=== PATIENT | male | born 1935 | race Caucasian/White ===

== ENCOUNTER → 2019-01-08 | Outpatient (CLI) | payer OTHER | LOC: RAD 09:30 | DX: J98.4 Other disorders of lung (principal); R53.1 Weakness; M79.10 Myalgia, unspecified site; Z95.0 Presence of cardiac pacemaker ==

== ENCOUNTER → 2019-03-06 | Outpatient (CLI) | payer OTHER | LOC: MRI 09:32 | DX: I67.82 Cerebral ischemia (principal); G45.9 Transient cerebral ischemic attack, unspecified ==

== ENCOUNTER 2019-08-25 17:02 | Inpatient (IN) | payer OTHER ==
[~2019-08-25] VITALS: Ht 182.9 cm; Wt 82.5 kg
--- NOTE | ~2019-08-25 | EMS ---
[address] [address] EMS Patient Care Report Name: JOHNNY ZUÑIGA Room #: 216-P [facility] IN M.R.#: [id number] Admission: 08/25/19 Attend Phys: Rony Jasso MD Discharge: 08/31/19 Date of : 31 Report #: [id number] THIS REPORT FOR: //name// Report Transmitted: 08/25/2019 17:03 EMS Care Summary [facility] MED-ACT Incident [id number] @ 08/25/2019 16:24 Incident Location [address] [place] [address] Patient JOHNNY ZUÑIGA Male, 84 Years 1935 Patient Address [address] [place] [address] Patient History None Reported, Patient Allergies No known allergies, Patient Medications Amiodarone, Chief Complaint Pt is unable to walk, weaker than usual per Disposition Transported No Lights/Krebs Dispatch Reason Sick Person Transported To [facility] Narrative [id number] responded to a C3 sick person at the above residential address. On scene, the crew finds a A&Ox3 83/M pt seated in a recliner. Pt's on scene states that she helped pt up to go take a nap and "he was just weight". Pt's states that pt suffers from dementia, and this is his usual nap time. Pt [address] [address] EMS Patient Care Report Name: JOHNNY ZUÑIGA Room #: 216-P [facility] IN M.R.#: [id number] Admission: 08/25/19 Attend Phys: Rony Jasso MD Discharge: 08/31/19 Date of : 31 Report #: [id number] appears A&Ox3 to EMS and is able to complete stroke scale without difficulties. states that approx 2 months ago, pt had a UTI and finished his antibiotic regimen a long time ago without a follow-up. Pt is incontinent to urine once we help him up from his chair. Pt denies any chest pain or shortness of breath. Pt's gives pmhx as noted, doesn't know what he takes the amiodarone for. ABCs, PE, VS, pt assisted to stand and transfer to cot. Pt secured to cot with belts and moved to [facility]. On board, VS repeated as noted. Pt rests en route to [facility]. On arrival, pt moved via cot to 3 and updated report delivered to RN. Pt sheet lifted to ER bed. Initial Vitals @16:49P: 73,SpO2: 95, @16:39P: 72,R: 18,BP: 168/78,Pain: 0/10,GCS: 15,SpO2: 94,Revised Trauma: 12, @16:50P: 98,R: 18,BP: 152/77,Pain: 0/10,GCS: 15,Temp: 97.7F,SpO2: 97,Revised Trauma: 12, Assessments @16:38MENTAL:No Abnormalities,SKIN:HEENT:Head/Face: No Abnormalities,Neck/Airway: No Abnormalities,LUNG SOUNDS:General: No Abnormalities,ABDOMEN:General: No Abnormalities,PELVIS//GI:Incontinence,EXTREMITIES:Left Arm: No Abnormalities,Right Arm: No Abnormalities,Left Leg: No Abnormalities,Right Leg: No Abnormalities,PULSE:NEURO:No Abnormalities, Impression Generalized Weakness Timeline 16:24,Call Received 16:24,Psap Call 16:24,Dispatched 16:25,En Route 16:36,On Scene 16:37,At Patient 16:39,BP: 168/78 M,PULSE: 72,RR: 18 R,SPO2: 94 Ox,ETCO2: ,BG: ,PAIN: 0,GCS: 15, 16:49,Depart Scene 16:49,BP: / M,PULSE: 73,RR: R,SPO2: 95 Ox,ETCO2: ,BG: ,PAIN: ,GCS: , 16:50,BP: 152/77 M,PULSE: 98,RR: 18 R,SPO2: 97 Ox,ETCO2: ,BG: ,PAIN: 0,GCS: 15, 16:56,At Destination 17:14,Call Closed Disclaimer v1.1 Copyright 2020 [employer] This EMS Care Summary contains data elements from the applicable legal record [address] [address] EMS Patient Care Report Name: JOHNNY ZUÑIGA Room #: 216-P [facility] IN M.R.#: [id number] Admission: 08/25/19 Attend Phys: Rony Jasso MD Discharge: 08/31/19 Date of : 33 Report #: [id number] (which may be displayed differently). It is designed to provide pertinent information for the following purposes: continuity of care, clinical quality, and state data reporting. The complete legal record is available to ED staff and administrators of the receiving hospital in [facility]s Patient Tracker. All data is provided "as is."
[2019-08-25 17:03] VITALS: BP 156/80
[2019-08-25 17:40] LABS: ABSOLUTE NEUTROPHILS 4.5 thou/uL (1.4-8.2); BASOPHILS 0.9 % (0.0-2.0); EOSINOPHILS 2.8 % (0.0-3.0); HEMATOCRIT 45.6 % (42.0-52.0); HEMOGLOBIN 15.5 gm/dL (14.0-18.0); LYMPHOCYTES 23.6 % (24.0-44.0); MCH 33.2 pg (26.0-34.0); MCV 97.6 fL (80.0-100.0); MONOCYTES 9.2 % (1.0-8.0); PLATELET COUNT 237 thou/uL (150-400); POLYS 63.5 % (36.0-66.0); RBC 4.67 mil/uL (4.50-6.00); RDW 15.4 % (10.5-14.5); WBC 7.1 thou/uL (4.0-11.0)
[2019-08-25 17:43] LABS: ANION GAP 10 mmol/L (7-16); BUN 26 mg/dL (7-18); CALCIUM 9.1 mg/dL (8.5-10.1); CHLORIDE 104 mmol/L (98-107); CO2 27 mmol/L (21-32); CREATININE 1.4 mg/dL (0.7-1.3); GLUCOSE 103 mg/dL (74-106); POTASSIUM 4.1 mmol/L (3.5-5.1); SODIUM 141 mmol/L (136-145)
[2019-08-25] MEDS ORDERED: CENTRUM SILVER1 EAC7 PO (17:43)
[2019-08-25] MEDS ORDERED: OMEGA-3 FISH1200 MG PO (17:44)
[2019-08-25 17:45] LABS: URINE BILIRUBIN NEGATIVE (Negative); URINE BLOOD TRACE (Negative); URINE CLARITY CLEAR; URINE COLOR YELLOW; URINE GLUCOSE-RANDOM* NEGATIVE (Negative); URINE KETONES NEGATIVE (Negative); URINE LEUKOCYTES-REFLEX NEGATIVE (Negative); URINE NITRITE-REFLEX NEGATIVE (Negative); URINE PROTEIN (DIPSTICK) NEGATIVE (Negative); URINE UROBILINOGEN 0.2 E.U./dl (0.2-1.0)
[2019-08-25] MEDS ORDERED: AMIODARONE HCL400 MG PO (17:46)
[2019-08-25 17:53] LABS: ALBUMIN 4.1 g/dL (3.4-5.0); SGOT 7 U/L (15-37); SGPT 36 U/L (30-65); TOTAL BILIRUBIN 0.6 mg/dL (<0.1-1.0); TOTAL PROTEIN 7.6 g/dL (6.4-8.2); TROPONIN-I <0.06 ng/mL (<0.06)
[2019-08-25 20:27] VITALS: BP 146/67
[2019-08-26 04:30] LABS: HEMATOCRIT 42.6 % (42.0-52.0); HEMOGLOBIN 14.5 gm/dL (14.0-18.0); MCH 33.1 pg (26.0-34.0); MCV 97.4 fL (80.0-100.0); RBC 4.37 mil/uL (4.50-6.00); RDW 15.4 % (10.5-14.5); WBC 8.7 thou/uL (4.0-11.0)
[2019-08-26 04:46] LABS: ALBUMIN 3.6 g/dL (3.4-5.0); CALCIUM 9.1 mg/dL (8.5-10.1); CREATININE 1.3 mg/dL (0.7-1.3); POTASSIUM 3.4 mmol/L (3.5-5.1); TOTAL BILIRUBIN 0.6 mg/dL (<0.1-1.0); TOTAL PROTEIN 7.1 g/dL (6.4-8.2)
[2019-08-26 05:00] VITALS: BP 130/31
[2019-08-26 08:00] VITALS: BP 153/79
[2019-08-26 11:00] VITALS: BP 136/62
--- NOTE | 2019-08-26 12:22 | 2DMMODE ---
[facility] [address] [place] [address] 2 D/M-MODE ECHOCARDIOGRAM Name: YOGESHJOHNNY Room #: 216-P ADM IN M.R.#: [id number] Admission: 08/25/19 Attend Phys: Rony Jasso MD Discharge: Date of : 33 Report #: [id number] THIS REPORT FOR: cc: Rony Jasso MD, Neal A. MD Lammoglia, Francisco J. MD ~ THIS REPORT FOR: //name// APPROVED REPORT Study performed: 08/26/2019 08:52:34 EXAM: Comprehensive 2D, Doppler, and color-flow Echocardiogram Patient Location: Bedside Room #: 216 Status: routine BSA: 2.01 HR: 62 bpm BP: 153/78 mmHg Rhythm: NSR Other Information Study Quality: Adequate Indications CVA/TIA Pacemaker Weakness Dementia Echo Enhancing Agent Indication: Rule Out Septal Defect Agent(s) / Amount(s) Used: Agitated Saline 7 cc 2D Dimensions IVSd: 10.66 (7-11mm) LVOT Diam: 21.00 (18-24mm) LVDd: 55.42 mm PWd: 9.18 (7-11mm) Ascending Ao: 36.12 (22-36mm) LVDs: 37.77 (25-40mm) Aortic Root: 32.87 mm LV Single Plane 4CH: 48.55 % LV Single Plane 2CH: 43.69 % Volumes [facility] [address] [place] [address] 2 D/M-MODE ECHOCARDIOGRAM Name: JOHNNY ZUÑIGA Room #: 216-P [facility] IN M.R.#: [id number] Admission: 08/25/19 Attend Phys: Rony Jasso, Discharge: Date of : 33 Report #: [id number] Left Atrial Volume (Systole) Single Plane 4CH: 92.72 mL Single Plane 2CH: 59.38 mL LA ESV Index: 46.00 mL/m2 Aortic Valve AoV Peak Da.: 1.14 m/s AO Peak Gr.: 5.23 mmHg LVOT Max P.28 mmHg LVOT Max V: 0.91 m/s KRISTEN Vmax: 2.74 cm2 Mitral Valve E/A Ratio: 0.6 MV Decel. Time: 275.68 ms MV E Max Da.: 0.49 m/s MV A Da.: 0.88 m/s MV PHT: 79.95 ms IVRT: 83.04 ms TDI E/Lateral E': 8.17 E/Medial E': 12.25 Medial E' Da.: 0.04 m/s Lateral E' Da.: 0.06 m/s Pulmonary Valve PV Peak Da.: 0.78 m/s PV Peak Gr.: 2.42 mmHg Tricuspid Valve TR Peak Da.: 2.41 m/s TR Peak Gr.: 23.30 mmHg Left Ventricle The left ventricle is normal size. Distal septal and anteroapical hypokinesis. There is normal left ventricular wall thickness. Left ventricular systolic function is normal. The left ventricular ejection fraction is within the normal range. LVEF is 45%. Mild diastolic dysfunction is present (impaired relaxation pattern). Right Ventricle The right ventricle is normal size. The right ventricular systolic function is normal. Pacemaker lead is present in the right ventricle. Atria Left atrium is moderately dilated. Injection of bubbles documented no interatrial shunt. Right atrium is mildly dilated. [facility] [address] [place] [address] 2 D/M-MODE ECHOCARDIOGRAM Name: JOHNNY ZUÑIGA Paco Room #: 216-P [facility] IN M.R.#: [id number] Admission: 08/25/19 Attend Phys: Rony Jasso, Discharge: Date of : 33 Report #: [id number] Aortic Valve The aortic valve is normal in structure. No aortic regurgitation is present. There is no aortic valvular stenosis. Mitral Valve The mitral valve is normal in structure. Moderate mitral regurgitation with an eccentric jet No evidence of mitral valve stenosis. Tricuspid Valve The tricuspid valve is normal in structure. Mild tricuspid regurgitation. Tricuspid regurgitant jet measures 23 mmHg. Unable to assess PA pressure. Pulmonic Valve The pulmonary valve is normal in structure. There is no pulmonic valvular regurgitation. Great Vessels The aortic root is normal in size. The ascending aorta is normal in size. IVC is not well visualized. Pericardium There is no pericardial effusion. <Conclusion> The left ventricle is normal size. LVEF is 45%. LVEF is 45%. Distal septal and anteroapical hypokinesis. The right ventricle is normal size. The right ventricular systolic function is normal. Pacemaker lead is present in the right ventricle. Left atrium is moderately dilated. Right atrium is mildly dilated. The aortic valve is normal in structure. The mitral valve is normal in structure. Moderate mitral regurgitation with an eccentric jet The tricuspid valve is normal in structure. Mild tricuspid regurgitation. Tricuspid regurgitant jet measures 23 mmHg. Unable to assess PA pressure. The pulmonary valve is normal in structure. [facility] [address] [place] [id number] 2 D/M-MODE ECHOCARDIOGRAM Name: JOHNNY ZUÑIGA Paco Room #: 216-P [facility] IN ..#: [id number] Admission: 08/25/19 Attend Phys: Rony Jasso, Discharge: Date of : 33 Report #: [id number] There is no pericardial effusion. Injection of bubbles documented no interatrial shunt. <ELECTRONICALLY SIGNED> By: Jorge Shah MD 08/26/19 1221 1221 1221 Jorge Shah MD /INF
[2019-08-26 16:30] VITALS: BP 137/59
[2019-08-26 19:37] VITALS: BP 146/77
[2019-08-27 05:03] VITALS: BP 123/57
[2019-08-27 08:00] VITALS: BP 139/61
[2019-08-27 12:00] VITALS: BP 133/54
[2019-08-27 16:00] VITALS: BP 141/68
[2019-08-27 20:14] VITALS: BP 146/61
[2019-08-28 04:05] VITALS: BP 145/72
[2019-08-28 08:00] VITALS: BP 144/76
[2019-08-28 12:00] VITALS: BP 143/68
[2019-08-28 19:52] VITALS: BP 128/73
[2019-08-29 03:30] VITALS: BP 123/56
[2019-08-29 08:42] VITALS: BP 109/61
[2019-08-29 12:06] VITALS: BP 122/72
[2019-08-29 15:45] VITALS: BP 144/85
[2019-08-29 20:48] VITALS: BP 152/80
[2019-08-30 05:37] VITALS: BP 125/58
[2019-08-30 05:44] LABS: HEMATOCRIT 43.3 % (42.0-52.0); HEMOGLOBIN 14.4 gm/dL (14.0-18.0); MCH 32.5 pg (26.0-34.0); MCHC 33.2 g/dL (28.0-37.0); MCV 97.9 fL (80.0-100.0); PLATELET COUNT 206 thou/uL (150-400); RBC 4.42 mil/uL (4.50-6.00); RDW 15.5 % (10.5-14.5); WBC 8.2 thou/uL (4.0-11.0)
[2019-08-30 06:28] LABS: ALBUMIN 3.3 g/dL (3.4-5.0); ANION GAP 10 mmol/L (7-16); BUN 24 mg/dL (7-18); CALCIUM 8.7 mg/dL (8.5-10.1); CHLORIDE 108 mmol/L (98-107); CHOLESTEROL 141 mg/dL (<200); CO2 22 mmol/L (21-32); CREATININE 1.1 mg/dL (0.7-1.3); GLUCOSE 104 mg/dL (74-106); MAGNESIUM 1.9 mg/dL (1.8-2.4); SODIUM 140 mmol/L (136-145); TRIGLYCERIDE 73 mg/dL (<150); VLDL 15 mg/dL (<40)
[2019-08-30 06:35] LABS: ABSOLUTE NEUTROPHILS 5.7 thou/uL (1.4-8.2); PLATELET ESTIMATE NORMAL
[2019-08-30 07:11] LABS: TSH 1.362 uIU/mL (0.358-3.740)
[2019-08-30 07:12] LABS: HDL CHOLESTEROL 42 mg/dL (>40); LDL CHOLESTEROL 85 mg/dL (<100); PHOSPHORUS 3.7 mg/dL (2.5-4.9); SGOT 23 U/L (15-37); SGPT 22 U/L (30-65); TC:HDL 3.4 Ratio (Not establshd); TOTAL BILIRUBIN 0.8 mg/dL (<0.1-1.0)
[2019-08-30 08:47] VITALS: BP 114/62
[2019-08-30 12:31] VITALS: BP 114/64
[2019-08-30 17:16] VITALS: BP 111/62
[2019-08-30 19:58] VITALS: BP 120/53
[2019-08-31 04:22] VITALS: BP 107/60
[2019-08-31 08:00] VITALS: BP 123/70
[2019-08-31] MEDS ORDERED: LIPITOR40 MG PO (08:52)
[2019-08-31] MEDS ORDERED: ASPIRIN325 PO (08:52)
[2019-08-31] MEDS ORDERED: PEPCID20 MG PO (08:53)
[2019-08-31 12:19] VITALS: BP 135/72
--- NOTE | 2019-09-25 15:20 | EKG ---
[facility] [place] [address] ELECTROCARDIOGRAM REPORT Name: JOHNNY ZUÑIGA Room #: 216-[facility] IN M.R.#: [id number] Admission: 08/25/19 Attend Phys: Rony Jasso MD Discharge: 08/31/19 Date of : 31 Report #: [id number] THIS REPORT FOR: cc: Rony Jasso MD, Neal A. MD Couchonnal, Luis F. MD ~ THIS REPORT FOR: //name// [facility] ED Test Date: 2019-08-25 Test Time: 17:44:21 Pat Name: JOHNNY ZUÑIGA Department: Room: 216 Gender: M Experience Designer: ana paula : 1935 Requested By: Wilmer East Order Number: [id number] MD: Sami oPmpa Measurements Intervals [place] Rate: 60 P: 0 PA: 156 QRS: -75 QRSD: 178 T: 84 QT: 511 QTc: 511 Interpretive Statements A-V dual-paced rhythm with some inhibition No further analysis attempted due to paced rhythm No previous ECG available for comparison Electronically Signed On 08-26-2019 8:41:25 HELMINTHOLOGY TEACHER by Sami Pompa [email or web address] <ELECTRONICALLY SIGNED> By: Sami Pompa MD 08/26/19 0841 [id number] Sami Pompa MD /EPI
== END 2019-08-31 15:29 | DRG 64 ==
LOC: ER 17:02 → EROBS 19:09 → 2N 19:09 → ENTRNSPT 08-31 15:13 → 2N 08-31 15:29
PROVIDERS: Internal Medicine; Nurse Practitioner; ADMIT Family Medicine
DX: I63.9 Cerebral infarction, unspecified (principal); N17.0 Acute kidney failure with tubular necrosis; I48.20 Chronic atrial fibrillation, unspecified; I69.354 Hemiplegia and hemiparesis following cerebral infarction affecting left non-dominant side; Z66 Do not resuscitate; F01.50 Vascular dementia, unspecified severity, without behavioral disturbance, psychotic disturbance, mood disturbance, and anxiety; E78.5 Hyperlipidemia, unspecified; I34.0 Nonrheumatic mitral (valve) insufficiency; I12.9 Hypertensive chronic kidney disease with stage 1 through stage 4 chronic kidney disease, or unspecified chronic kidney disease; N18.3 Chronic kidney disease, stage 3 (moderate); Z87.440 Personal history of urinary (tract) infections; Z79.899 Other long term (current) drug therapy; Z79.01 Long term (current) use of anticoagulants
CPT/HCPCS: 10081

== ENCOUNTER 2019-08-31 14:15 | Inpatient (IN) | payer OTHER ==
[~2019-08-31] VITALS: Ht 190.5 cm; Wt 82.6 kg
[~2019-08-31 14:15] MED LIST: AMIODARONE HCL400 MG PO; ASPIRIN325 PO; CENTRUM SILVER1 EAC7 PO; LIPITOR40 MG PO; OMEGA-3 FISH1200 MG PO; PEPCID20 MG PO
[2019-08-31 16:03] VITALS: BP 125/55
--- NOTE | 2019-08-31 19:28 | NUR ---
ASSUME PT CARE AT 1600 FROM CCU. 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 RECEIVED REPORT FROM CCU RN THAT PT IS INCONT B&B. ON ASPIRATION PRECAUTION, NECTAR THICKEN LIQUID, AND MECHANICAL ALTERED GROUND. ALERT AND ORIENTED X2, FORGETFUL. HAS DEMENTIA, SPEECH DEVIATION TOWARD THE RIGHT SIDE. UP WITH MAX ASSIST WITH 2X PIVOT. UP TO DINNING ROOM FOR DINNER. ATE 40% DINNER. DENIES PAIN. SKIN INTACT. NO ABLE TO TURN BY HIMSELF. NEEDS TO BE TURN Q2HR WHILE IN BED. ADMISSION MEDS FAXED TO PHARMACY. DR. MONTILLA NOTICED THAT PT MOVE TO REHAB. 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 PT RESTING IN BED. FALL PRECAUTION IN PLACE. CALL LIGHT WITHIN REACH. GAVE REPORT TO NIGHT NURSE TO CONTINUE TO MONITOR.
[2019-08-31 21:39] VITALS: BP 132/64
--- NOTE | 2019-08-31 23:21 | NUR ---
PT ASSESSMENT DONE AND VSS. MEDS GIVEN AND WELL TOLERATED. FALL PRECAUTIONS IN PLACE. SLEPT WELL. HOURLY ROUNDING. CALL LIGHT IN PLACE. WILL CONTINUE TO MONITOR.
[2019-09-01 06:47] LABS: HEMATOCRIT 40.7 % (42.0-52.0); HEMOGLOBIN 13.6 gm/dL (14.0-18.0); MCH 32.8 pg (26.0-34.0); MCHC 33.3 g/dL (28.0-37.0); MCV 98.3 fL (80.0-100.0); RBC 4.14 mil/uL (4.50-6.00); WBC 7.4 thou/uL (4.0-11.0)
[2019-09-01 06:59] LABS: CALCIUM 8.7 mg/dL (8.5-10.1); CREATININE 1.1 mg/dL (0.7-1.3); POTASSIUM 3.8 mmol/L (3.5-5.1)
[2019-09-01 08:00] VITALS: BP 105/66
--- NOTE | 2019-09-01 09:50 | NUR ---
pt up in wheel chair, intro to dcp, and team meeting. had vs swallow. st to start vital stim. " home with , independent, no dme"/iglesia. will cont following as needed for dc needs.
--- NOTE | 2019-09-01 18:06 | NUR ---
ASSUME PT CARE AT 0700. REPORTS SLEPT GOOD LAST NIGHT. ALERT AND ORIENTED X2. FORGETFUL. HAS DEMENTIA. PT IS INCONT B&B. OFFERED TOILETING FREQUENTLY. PT HAS BEEN UP TO DINNING ROOM FOR MEALS. ON ASPIRATION PRECAUTION, NECTAR THICKEN LIQUID, AND MECHANICAL ALTERED GROUND. UP WITH MAX ASSIST PIVOT. HAS POOR APPETITE, ABLE TO FEED HIMSELF BUT NEEDS ENCOURAGEMENT. ATE 25% BREAKFAST AND DINNER, BUT 5% FOR LUNCH. DENIES PAIN. SKIN INTACT. NO ABLE TO TURN BY HIMSELF WHILE IN BED, NEEDS TO BE TURN Q2HR WHILE IN BED. OFFERED SUPPORTIVE CARE. PT WAS UP TO WORK WITH OT/PT AND ST. PARTICIPATED WELL WITH THERAPY TODAY. ABLE TO TAKE PILL ONE WITH APPLE SAUCES, SLOW WITH EXTRA SWALLOWING IN BETWEEN. FALL PRECAUTION IN PLACE. CALL LIGHT WITHIN REACH. WILL GIVE REPORT TO NIGHT NURSE TO CONTINUE TO MONITOR.
[2019-09-01 19:17] VITALS: BP 92/50
--- NOTE | 2019-09-02 03:16 | NUR ---
TURNED Q 2 HOURS AND HAS BEEN INCONTINENT OF URINE 3 TIMES. PLEASANT, TOLERATING PILLS ONE AT A TIME WITH APPLESAUCE, PLUS NECTAR THICK LIQUIDS A SPOONFUL AT A TIME.
[2019-09-02 07:50] VITALS: BP 108/48
--- NOTE | 2019-09-02 12:59 | NUR ---
cm visited with at bedside, she agrees with dcp. jeremy reported " in split level home, 5 steps then 4 steps from living room to bathroom. he has not driven in while. i could set out his clothes and then he could dress himself if i would say ok i have to finish my stuff then when go to help he would be dressed already . i guess could put twin bed in main level if we had to then only have 4 steps to bathroom. no hh or rehab in past. no equipment needed in past, would like to know if he is walking yet or is it to early?"/jeremy. passed on information to therapy to speak with .
--- NOTE | 2019-09-02 13:50 | NUR ---
PT ALERT TO SELF ONLY. VSS. PT DENEIS PAIN/SOA. PT TOLERATES MEDS, BUT ONLY EATS A SMALL PORTIONS OF MEALS. PT WORKED WELL WITH PT/OT TODAY. PT AT BEDISIDE THIS AFTERNOON. PT SLOWLY PROGRESSING [facility] POC GOALS.
[2019-09-02 19:08] VITALS: BP 130/62
--- NOTE | 2019-09-02 23:58 | NUR ---
ASSUMED CARE ON 09/02/19, IN BED, VSS, A&OX1-2. FORGETFUL AND LEFT SIDED HEMIPARESIS NOTED. PLEASANT, QUIET AFFECT, WILL SPEAK AND ANSWER QUESTIONS DURING ASSESSMENT. DENIES PAIN. REPORTS LAST BM ON 09/02, LARGE AND FIRM. INCONTINENT OF B&B. HRRR, LUNGS CTA ALL PEREZ, ABD N X 4 Q. TAKES MEDS ONE AT A TIME WITH APPLESAUCE AND NECTAR THICK BEVERAGE. ASPIRATION PRECAUTION, MECHANICAL ALTERED GROUND DIET. PATIENT IS BEING TURNED Q 2 HOURS, CALL LIGHT WITHIN REACH, BED IN LOW POSITION, ROUNDING Q 1 HOUR.
[2019-09-03 08:00] VITALS: BP 128/67
[2019-09-03 21:16] VITALS: BP 137/70
--- NOTE | 2019-09-03 23:00 | NUR ---
PT ASSESSMENT DONE AND VSS. MEDS GIVEN AND WELL TOLERATED. FALL PRECAUTIONS IN PLACE. SLEEPING WELL. HOURLY ROUNDING. CALL LIGHT IN REACH. WILL CONTINUE TO MONITOR.
[2019-09-04 07:48] VITALS: BP 121/62
[2019-09-04 19:30] VITALS: BP 105/61
--- NOTE | 2019-09-05 02:34 | NUR ---
PATIENT TURNING SELF EVERY TWO HOURS, HAS BEEN INCONTINENT TWICE OF URINE AND SMALL OMOUNT SOFT STOOL, HAD ONLY TAKEN 25% OF HIS MIRALAX BECAUSE HE DID NOT LIKE THE TASTE. TOLERATING PILLS WHOLE WITH APPLESAUCE AND SIPS OF NECTAR THICK LIQUIDS.
[2019-09-05 08:49] VITALS: BP 138/71
[2019-09-05 08:50] VITALS: BP 118/66
[2019-09-05 08:51] VITALS: BP 138/71
[2019-09-05 08:52] VITALS: BP 118/66
--- NOTE | 2019-09-05 09:38 | NUR ---
ASSUMED CARE AT 0700. PATIENT IS ALERT AND ORIENTED X1 TO SELF AND IS FORGETFUL. PATIENT HAS LEFT SIDED WEAKNESS. LUNGS ARE CLEAR AND DEMINISHED. ABD IS SOFT WITH BSX4. PATIENT IS INCONTINENT OF B & B. UP IN W/C AND OUT TO DINING ROOM FOR MEALS. FALL AND SAFETY PROTOCOLS IN PLACE. DENIES ANY PAIN AT THIS TIME. CONTINUES TO PROGRESS SLOWLY TOWARDS D/C GOALS. WILL CONTINUE TO MONITER.
[2019-09-05 20:13] VITALS: BP 113/55
--- NOTE | 2019-09-06 03:02 | NUR ---
TURNED SIDE TO SIDE WITH AND WITHOUT ASSIST. INCONTINENT OF BOWEL AND BLADDER. TOLERATING MEDS WHOLE WITH APPLESAUCE, TAKING SPOONFULS OF NECTAR THICK LIQUIDS
[2019-09-06 08:00] VITALS: BP 113/58
--- NOTE | 2019-09-06 16:37 | NUR ---
ASSUMED CARE OF PT AT 0700. PT IS ALERT AND ORIENTED TO PERSON ONLY. PT DENIES PAIN. UP IN DINING ROOM FOR ALL MEALS. LEFT SIDED HEMIPARESTIS AND SLURRED SPEECH, NO CHANGES FROM BASELINE. INCONTINENT OF BOWEL AND BLADDER. INCOURAGED BY STAFF TO INCREASE NUTRITIONAL INTAKE. FALL PRECAUTIONS IN PLACE AND NURSING WILL CONTINUE TO MONITOR.
[2019-09-06 19:55] VITALS: BP 125/56
--- NOTE | 2019-09-07 00:39 | NUR ---
PT ASSESSMENT DONE AND VSS. MEDS GIVEN AND WELL TOLERATED. FALL PRECAUTIONS IN PLACE. SLEEPING WELL. HOURLY ROUNDING. CALL LIGHT IN REACH. WILL CONTINUE TO MONITOR.
[2019-09-07 08:08] VITALS: BP 115/52
--- NOTE | 2019-09-07 18:54 | NUR ---
ASSUMED CARE OF PT AT 0700. PT IS A&OX4 AND VITAL SIGNS ARE STABLE. PT DENIES PAIN AND PARTICIPATED IN SCHEUDLED THERAPIES. PT INCONTINENT OF BOWEL AND BLADDER, PT UNAWARE OF INCONTINENT EPISODES AND REQUIRES Q2H CHECKS BY NURSING STAFF. TURNED AND REPOSITIONED EVERY 2 HOURS. LUNG SOUNDS CLEAR/DIMINISHED. FALL PRECAUTIONS IN PLACE AND NURSING WILL CONTINUE TO MONITOR.
[2019-09-07 19:18] VITALS: BP 131/59
--- NOTE | 2019-09-08 02:04 | NUR ---
PT ASSESSMENT COMPLETED AND VSS. MEDS GIVEN ORDERED AND WELL TOLERATED. FALL PRECAUTIONS IN PLACE. ASST WITH FREQUENT REPOSITION FOR COMFORT. INC AND LEWIS CARE PROVIDED. SLEEPING WELL. DENIES NEEDS. APPEARS COMFORTALBE. WILL CONTINUE TO MONITOR FREQUENTLY.
[2019-09-08 05:42] LABS: ABSOLUTE NEUTROPHILS 5.8 thou/uL (1.4-8.2); BASOPHILS 0.5 % (0.0-2.0); EOSINOPHILS 2.9 % (0.0-3.0); HEMATOCRIT 39.2 % (42.0-52.0); HEMOGLOBIN 13.1 gm/dL (14.0-18.0); LYMPHOCYTES 18.7 % (24.0-44.0); MCH 32.5 pg (26.0-34.0); MCHC 33.5 g/dL (28.0-37.0); MCV 97.2 fL (80.0-100.0); PLATELET COUNT 218 thou/uL (150-400); POLYS 67.9 % (36.0-66.0); RBC 4.03 mil/uL (4.50-6.00); RDW 14.8 % (10.5-14.5); WBC 8.6 thou/uL (4.0-11.0)
[2019-09-08 05:53] LABS: CALCIUM 8.9 mg/dL (8.5-10.1); CREATININE 1.4 mg/dL (0.7-1.3); POTASSIUM 3.7 mmol/L (3.5-5.1)
[2019-09-08 07:50] VITALS: BP 121/67
--- NOTE | 2019-09-08 14:15 | NUR ---
team meeting, recommendation: diet mech. soft with nectar, can have 5 cc with provial cup in room. incont of b and b. to work with therapy training. re team with dc 09/25/2019 home with hh pt ot st nursing. will cont following as needed for dc needs.
--- NOTE | 2019-09-08 19:32 | NUR ---
ASSUMED CARE OF PT AT 0700. PT IS A&OX1-2. INCONTENENT OF BOWEL AND BLADDER, PT UNAWARE OF INCONTENENT EPISODES. NO NOTED SKIN BREAKDOWN. PT DENIES PAIN. FALL PRECAUTIONS IN PLACE, NURSING WILL CONTINUE TO MONITOR.
[2019-09-08 19:35] VITALS: BP 110/45
--- NOTE | 2019-09-09 | NUR ---
PT ASSESSMENT COMPLETED AND VSS. MEDS GIVEN ORDERED AND WELL TOLERATED. FALL PRECAUTIONS IN PLACE. ASST WITH FREQUENT REPOSITION FOR COMFORT. INC OF URINE. SLEEPING WELL. DENIES NEEDS. WILL CONTINUE TO MONITOR FREQUENTLY.
[2019-09-09 07:50] VITALS: BP 113/62
--- NOTE | 2019-09-09 14:39 | NUR ---
pt stated ok when discussing dcp, unable to reach via phone call. will cont following as needed for dc needs.
--- NOTE | 2019-09-09 15:46 | NUR ---
Patient participated in community reintegration on 09/09/[address] Refer to documentation by .
--- NOTE | 2019-09-09 16:24 | NUR ---
ASSUMED CARE OF PT AT 0700. PT IS A&OX1-2. ABLE TO VOICE HIS NEEDS ENCOURAGED TO. [place]. CONTINUE TO BE O SWALLOWING PRECAUTION. ON MECHANICAL SOFT. MEDS TAKE ONE AT THE TIME WITH APPLE SAUCE. INCONTENENT OF BOWEL AND BLADDER. REASSESSMENT PER CHART. LAST BM WAS YESTERDAY. CONTINUE TO BE ON MIRALAX DAILY. PT UNAWARE OF INCONTENENT EPISODES. NO NOTED SKIN BREAKDOWN. TURN Q 2HRS WHILE IN BED. B/P LOW 113/62. DR. PINO STARTS PT ON NS 0.9% AT 30ML/HR. IV STARTED ON LEFT FOREARM. PT DENIES PAIN. UP TO DINNING ROOM FOR MEALS. WAS HERE EARLIER. PT WENT DOWN TO [place] TODAY. FALL PRECAUTIONS IN PLACE. OFFER TOILETING FREQUENTLY. RESTING IN BED. NURSING WILL CONTINUE TO MONITOR.
[2019-09-09 20:00] VITALS: BP 115/63
--- NOTE | 2019-09-10 04:23 | NUR ---
INCONTINENT OF URINE, CHANGED WITH [facility]WIS CARE, PATIENT IS TURNING SELF SIDE TO SIDE BUT MOSTLY TO THE LEFT. IV FLUIDS INFUSING PLUS TAKING NECTAR THICK LIQUIDS PO.
[2019-09-10 06:04] LABS: ABSOLUTE NEUTROPHILS 7.5 thou/uL (1.4-8.2); BASOPHILS 0.7 % (0.0-2.0); EOSINOPHILS 2.7 % (0.0-3.0); HEMATOCRIT 36.8 % (42.0-52.0); HEMOGLOBIN 12.8 gm/dL (14.0-18.0); LYMPHOCYTES 14.7 % (24.0-44.0); MCH 34.2 pg (26.0-34.0); MCHC 34.9 g/dL (28.0-37.0); MCV 98.2 fL (80.0-100.0); MONOCYTES 10.7 % (1.0-8.0); PLATELET COUNT 214 thou/uL (150-400); POLYS 71.2 % (36.0-66.0); RBC 3.74 mil/uL (4.50-6.00); RDW 14.8 % (10.5-14.5); WBC 10.5 thou/uL (4.0-11.0)
[2019-09-10 06:42] LABS: CALCIUM 8.4 mg/dL (8.5-10.1); CREATININE 1.3 mg/dL (0.7-1.3); PHOSPHORUS 3.5 mg/dL (2.5-4.9); POTASSIUM 4.1 mmol/L (3.5-5.1)
[2019-09-10 08:00] VITALS: BP 128/76
[2019-09-10 12:57] VITALS: BP 120/63
--- NOTE | 2019-09-10 15:11 | NUR ---
Patient participated in community reintegration on 09/09/19 with SPEECH THERAPY. Refer to documentation by SPEECH THERAPY.
[2019-09-10 20:00] VITALS: BP 120/63
--- NOTE | 2019-09-10 20:40 | NUR ---
PATIENT SLEEPY TODAY AND SPOUSE CONCERNED ABOUT PATIENT SLEEPINESS. PRIMARY MD AND REHAB CABIN CREW AWARE. ENCOURAGE PATIENT TO TAKE MORE NECTAR THICK LIQUIDS.
--- NOTE | 2019-09-11 04:31 | NUR ---
ASSUMED PT CARE AROUND 1930. AXOX2. VSS. NO S/S ACUTE DISTRESS NOTED OR REPORTED AT THIS TIME. WILL CONT TO MONITOR FOR ANY CHANGES IN CONDITION.
[2019-09-11 07:51] VITALS: BP 103/57
--- NOTE | 2019-09-11 18:43 | NUR ---
ASSUMED CARE OF PT AT 0700. REPORTS SLEPT GOOD LAST NIGHT. PT IS A&OX1-2. ABLE TO VOICE HIS NEEDS ENCOURAGED TO. [place]. CONTINUE TO BE ON SWALLOWING PRECAUTION. ON MECHANICAL SOFT. MEDS TAKE ONE AT THE TIME WITH APPLE SAUCE. INCONTENENT OF BOWEL AND BLADDER. REASSESSMENT PER CHART. HAD INCONT BM THIS EVENING. CONTINUE TO BE ON MIRALAX DAILY. PT UNAWARE OF INCONTENENT EPISODES. NO NOTED SKIN BREAKDOWN. TURN Q 2HRS WHILE IN BED. REASSESSMENT PER CHART. CHEST XRAY YESTERDAY SHOWS MILD RIGHT AIR SPACE INFILTRATION. HAS RUNNING NOSE. NOTIFIED DR. PINO OBTAINED ORDER FOR FLONASE SPRAY BID. OBTAINED ORDER FOR PSYCH CONSULT. DR. PATINO CAME TO SEE PT, BUT COULDN'T WAKE HIM UP. DOCTOR SHE WILL SEE PT ON SATURDAY. UP TO DINNING ROOM FOR MEALS. WAS HERE EARLIER. FALL PRECAUTIONS IN PLACE. OFFER TOILETING FREQUENTLY. RESTING IN BED. WILL GIVE REPORT TO NIGHT NURSE TO CONTINUE TO MONITOR.
[2019-09-11 19:56] VITALS: BP 118/56
--- NOTE | 2019-09-12 04:41 | NUR ---
DENIES PAIN. INCONTINENT OF URINE, PERICARE AND TURNED Q2H, TURNS SELF TO LEFT SIDE EVEN AGAINST PILLOW. FEET ON PILLOW, AIR PUMP FOR THERAPY.
[2019-09-12 06:53] LABS: ABSOLUTE NEUTROPHILS 5.7 thou/uL (1.4-8.2); BASOPHILS 0.7 % (0.0-2.0); EOSINOPHILS 2.5 % (0.0-3.0); HEMATOCRIT 38.4 % (42.0-52.0); HEMOGLOBIN 12.9 gm/dL (14.0-18.0); LYMPHOCYTES 15.1 % (24.0-44.0); MCH 32.9 pg (26.0-34.0); MCHC 33.6 g/dL (28.0-37.0); MCV 97.7 fL (80.0-100.0); PLATELET COUNT 205 thou/uL (150-400); POLYS 69.7 % (36.0-66.0); RBC 3.93 mil/uL (4.50-6.00); RDW 14.6 % (10.5-14.5); WBC 8.2 thou/uL (4.0-11.0)
[2019-09-12 07:03] LABS: CALCIUM 8.6 mg/dL (8.5-10.1); CREATININE 1.3 mg/dL (0.7-1.3); PHOSPHORUS 3.2 mg/dL (2.5-4.9); POTASSIUM 3.8 mmol/L (3.5-5.1)
[2019-09-12 08:11] VITALS: BP 124/63
--- NOTE | 2019-09-12 10:34 | NUR ---
ASSUMED CARE OF PT AT 0700. OT WORKED WITH PT AND GOT PT UP TO DINNING ROOM. PT MORE ALERT THIS AM AND ABLE TO FEED HIMSELF LITTLE BETTER. ATE 50% BREAKFAST. INCONT BLADDER BEFORE GETS OUT THE BED. PT REPORTS SLEPT GOOD LAST NIGHT. PT IS A&OX1-2. ABLE TO VOICE HIS NEEDS ENCOURAGED TO. [place]. CONTINUE TO BE ON SWALLOWING PRECAUTION. ON MECHANICAL SOFT. MEDS TAKE ONE AT THE TIME WITH APPLE SAUCE. CONTINUE TO BE ON MIRALAX DAILY. ASSISTED TO BSC WITH MOD ASSIST. PT DOES BETTER TO HOLD ON BED RAIL AND STAND UP. HAD SMALL SOFT BM IN BSC. AT BEDSIDE HELPING TO TRIM PT'S BEAR. SHE IS HAPPY TO SEE PT IS MORE RESPONSIVE TODAY. FLONASE SPRAY GIVEN. PT LOOKS LESS CONGESTED TODAY. DR. PINO CAME TO SEE PT AND TALKED WITH HIS . REMERON 15MG ADD FOR ANTIDEPRESSION. PT WANTS TO LAY IN BED. PT GOALS FOR PT IS TO SIT IN RECLINER, GO TO DINNING ROOM FOR MEALS. WORK WITH PHYSICAL THERAPIST AT 2PM AND LAY DOWN. PT AGREES WITH THE GOALS. FALL PRECAUTIONS IN PLACE. OFFER TOILETING FREQUENTLY. WILL CONTINUE CHECK FREQUENTLY FOR NEEDS AND SAFETY.
[2019-09-12 19:30] VITALS: BP 133/72
--- NOTE | 2019-09-13 04:19 | NUR ---
RESTING QUIETLY, TURNING SELF MOST OFTEN TO HIS LEFT SIDE, INCONTINENT OF URINE TWICE. TAKING PO MEDS ONE AT A TIME WHOLE IN APPLESAUCE.
[2019-09-13 09:22] VITALS: BP 136/58
--- NOTE | 2019-09-13 16:26 | HC ---
[facility] [place] [address] CONSULTATION Name: JOHNNY ZUÑIGA Room #: 506-1 ADM IN M.R.#: [id number] Admission: 08/31/19 Attend Phys: Diego Sal MD Discharge: Date of : 33 Report #: [id number] THIS REPORT FOR: cc: Rony Jasso MD, Neal A. MD Deutch,Rony Maharaj. PhD ~ CC: Diego Jasso DATE OF SERVICE: 09/12/2019 AGE: 84. 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 His assessment included left hemiparesis, dysphagia, history of atrial fibrillation, chronic kidney disease, congestive heart failure with moderate mitral regurgitation and premorbid dementia. A complete description of his medical condition and history along with medications can be found in his medical record. Neuropsychological consultation was requested to provide assistance in the assessment of cognitive and emotional status and to provide recommendations and services. Prior to this most recent admission, he was living with the assistance of his in their home. She reports that he had been diagnosed with a vascular dementia about 3-4 years ago. He has 4 children, 3 of his children are from a previous marriage. This is his second marriage. 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 He is a high school graduate. TECHNIQUES UTILIZED: Clinical interview, review of medical records, staff consultation and behavioral observation, mini mental status exam 2 standard version and clock drawing and family interview -- . EXAMINATION FINDINGS: The patient was alert, but minimally cooperative during the assessment. He was unable to describe the reason for his hospitalization. He often gaze away from me during the assessment and required assistance from his to participate in providing background and current symptoms. The patient is cooperative and compliant, but very passive with poor initiative. He does not report auditory or visual hallucinations. There is no evidence of [facility] [address] [place] [address] CONSULTATION Name: JOHNNY ZUÑIGA Room #: 506-1 [facility] IN .R.#: [id number] Admission: 08/31/19 Attend Phys: Diego Sal MD Discharge: Date of : 33 Report #: [id number] aphasia. He lacks insight into his symptoms. He does not report difficulty with sleep or appetite. He will respond when questioned regarding current symptoms, but is not accurately in describing his current presentation. His indicates that his appetite has been very poor. He is hypersomnolent and has been for several years. Deficits with memory and word finding are noted. He does not have a history of treatment for depression, but affect appears very depressed. His performance was extremely low on the brief version of the MMSE 2. He had a score of 4/16. He was 3/3 for initial registration, but he was 0/5 for orientation to time and 1/[address]. He was 0/3 for immediate recall of 3 items after a brief time delay and distraction. Performance improved on the standard version of the MMSE 2 with raw score of 15 of 30. The patient was 4/5 for serial sevens, 2/2 for naming, 1/1 for repetition. He could read and follow single command. Auditory comprehension is within normal limits. The patient was unable to accurately copy a simple geometric design. He could not write a sentence. The patient was unable to draw a clock, place the numbers within the clock. When asked to set the hands, he was unable to do that, unable to accurately set the hands at a designated time. Evidence of perseveration was noted during the assessment. Perseverative responses were occurred both with verbal expression as well as written as well as in copying tasks. The patient is presenting with severe neurocognitive deficits. Auditory comprehension is satisfactory. Primary deficits are within orientation, memory, executive functioning and visual spatial construction. DIAGNOSTIC IMPRESSION: Major neurocognitive disorder (dementia), due to vascular disease with Alzheimer type features. Unspecified depressive disorder. RECOMMENDATIONS: Psychiatric consultation may be of benefit to assist in the selection of an antidepressant. He has had a restricted diet since his hospitalization and will likely do better in a more familiar routine along with a similar diet to his prehospital admission. Continued supervision will be necessary for medication, finances, nutrition and general decision making to maintain safety. His is very attentive in providing supervision at home. The patient will require 24-hour care to maintain safety. [address] [address] CONSULTATION Name: JOHNNY ZUÑIGA Paco Room #: 506-1 ADM IN M.R.#: [id number] Admission: 08/31/19 Attend Phys: Diego Sal MD Discharge: Date of : 33 Report #: [id number] Thank you very much for allowing me to provide the consultation on this patient. <ELECTRONICALLY SIGNED> By: Rony Escalante, PhD 09/13/19 1626 1338 25 Rony Escalante, PhD /nt
--- NOTE | 2019-09-13 18:34 | NUR ---
ASSUMED CARE AT 0700, PT A&O TO PERSON, NO ACUTE DISTRESS NOTED. VSS, O2 ON RA. PT DENIED ANY PAIN OR DISCOMFORT. IV TO LFA SALINE LOCK. TOLERATES MEDS WHOLE IN APPLESAUCE. ATE BREAKFAST AND LUNCH IN DINING ROOM. INCONTINENT OF B&B, BM 09/12/19. RESTING IN BED, CALL LIGHT WITHIN REACH, WILL CONTINUETO MONITOR PER POC.
[2019-09-13 19:27] VITALS: BP 125/56
--- NOTE | 2019-09-14 01:57 | NUR ---
ASSESSED AT START OF SHIFT PT RESTING IN BED. EVENING MEDS GIVEN WHOLE WITH APPLE SAUCE ONE AT A TIME. PT LACI MEDS WELL. PT INCONTINENT OF URINE NO BM THIS SHIFT. HOURLY ROUNDING DONE AN DFALL PREC IN PLACE WILL CONT TO MONITOR TILL EOS.
[2019-09-14 07:30] VITALS: BP 133/66
[2019-09-14 09:10] VITALS: BP 133/66
--- NOTE | 2019-09-14 12:28 | HC ---
[facility] [place] [address] CONSULTATION Name: JOHNNY ZUÑIGA Room #: 506-1 ADM IN M.R.#: [id number] Admission: 08/31/19 Attend Phys: Diego Sal MD Discharge: Date of : 33 Report #: [id number] THIS REPORT FOR: cc: Rony Jasso MD, Neal A. MD Lammoglia, Francisco J. MD ~ CC: Diego Jasso DATE OF SERVICE: 09/13/2019 REASON FOR CONSULTATION: Assessment of medical management of atrial fibrillation. HISTORY OF PRESENT ILLNESS: This is a very pleasant 84-year-old gentleman who had been admitted to the hospital after sustaining a right basal ganglia infarction. This infarction occurred on 08/25/2019 and was deemed to be an ischemic infarction. At that time, the patient had other chronic lacunar infarcts noted and the right occipital infarct also. He does have some underlying dementia. is not available to me at the bedside currently for full history and physical. Most of the history is obtained from the patient, from the chart, and from the nursing staff. The patient was also identified as having atrial fibrillation in the past without any anticoagulation. His prior history is significant for heart failure and in view of this age and other risk factors, has an elevated CHADS-VASc risk score. ALLERGIES: No known drug allergies. MEDICATIONS: [place] 3 fish oil, multivitamin; amiodarone 400 mg tablets, 200 mg daily; atorvastatin 40 daily; aspirin 325 daily; Pepcid 20 mg daily; docusate; acetaminophen; polyethylene glycol; and vitamin D are also taken. PAST MEDICAL HISTORY: Significant for: 1. Coronary artery disease. 2. Atrial fibrillation, apparently chronic and persistent. 3. Chronic kidney disease stage 3. 4. Heart failure with moderately decreased ejection fraction of 45%. 5. CVAs as stated above. SOCIAL HISTORY: The patient does not smoke or consume alcohol, follow a particular exercise regimen or dietary restriction. FAMILY HISTORY: Negative for significant premature cardiovascular or neurovascular disease. [facility] [address] [place] [address] CONSULTATION Name: YOGESHJOHNNY Room #: 506-1 [facility] IN ..#: [id number] Admission: 08/31/19 Attend Phys: Diego Sal MD Discharge: Date of : 33 Report #: [id number] REVIEW OF SYSTEMS: Except for symptoms commensurate with comorbid state, the 10-point review of system is negative. Although in view of the patient's history of dementia, it is uncertain how accurate this is. PHYSICAL EXAMINATION: GENERAL: Well-developed, well-nourished male, resting comfortably, in no acute distress. VITAL SIGNS: Noted and reviewed in the chart. ELECTROCARDIOGRAM: Not available to me presently, but prior ECGs demonstrates atrial fibrillation. IMPRESSION: 1. Atrial fibrillation with an elevated CHADS-VASc score. The issue is whether the patient's comorbidities and dementia make him not a candidate for anticoagulation. I will discuss this once again more fully with the in the a.m. when she is back, so that we can further characterize and establish long-term goals and plans. 2. Cerebrovascular accident, likely secondary to above and apparently multiple in nature, which would argue for subsequent anticoagulation for atrial fibrillation. 3. Dementia. 4. Chronic kidney disease stage 3, being followed by primary care. <ELECTRONICALLY SIGNED> By: Jorge Shah MD 09/14/19 1228 04 15 Jorge Shah MD /nt
--- NOTE | 2019-09-14 13:40 | NUR ---
Follow up 09/14/19: Dysphagia diet remains mechanical soft nectar thick liquids. Intake seems to be improving slightly with 40-100% meals/snacks and 20-100% Vanilla Ensure Pudding BID. Cont with adding beneprotein to soft foods at B and D. Allowed thin liquids in a 5cc Provale cup. No new pertinent labs. Pert meds include multivitamin w/ minerals, Miralax. Taking meds whole with applesauce. No new weight since 182# on 08/31. Noted renal diet order was added. Attempted visit but Pt was leaving for MRI/CT scan and holding all therapy today. Will attempt to visit on 09/15 to discuss appetite, intake, and supplements.
--- NOTE | 2019-09-14 14:05 | NUR ---
PATIENT HAD NEW ONSETLEFT FACIAL DROOP AND CHANGE IN NEURO STATUS. RN PAGED RAPID RESPONSE AND TEAM ARRIVED. PT TO STAT CT SCAN, THEN DR. CHAWLA AND DR. DUKES TO SEE PT, WELL DR. PATINO. PATIENT'S WAS GIVEN ALL INFORMATION AND GAVE CONSENT FOR TPA. STAT MRI ORDERED, PT TO GO TO ICU. NANCE PLACED. NEW IV PLACED IN RT AC PER RASMUSSEN RN, AND PT TO ICU NOW WITH RN AND STROKE SPECILATY RN. NANCE PLACED AND DRAINING SAMMIE URINE. REMAINS AT HIS SIDE.
[2019-09-14 14:21] LABS: ABSOLUTE NEUTROPHILS 6.5 thou/uL (1.4-8.2); BASOPHILS 0.5 % (0.0-2.0); EOSINOPHILS 1.7 % (0.0-3.0); HEMATOCRIT 41.6 % (42.0-52.0); HEMOGLOBIN 13.9 gm/dL (14.0-18.0); LYMPHOCYTES 12.2 % (24.0-44.0); MCH 32.9 pg (26.0-34.0); MCHC 33.3 g/dL (28.0-37.0); MCV 98.7 fL (80.0-100.0); MONOCYTES 9.6 % (1.0-8.0); PLATELET COUNT 225 thou/uL (150-400); RBC 4.21 mil/uL (4.50-6.00); RDW 15.2 % (10.5-14.5); WBC 8.6 thou/uL (4.0-11.0)
[2019-09-14 14:34] LABS: APTT 29.2 Seconds (24.5-32.8); PROTIME 10.7 Seconds (9.3-11.4)
[2019-09-14 14:36] LABS: ALBUMIN 3.2 g/dL (3.4-5.0); CALCIUM 9.2 mg/dL (8.5-10.1); CREATININE 1.3 mg/dL (0.7-1.3); POTASSIUM 3.9 mmol/L (3.5-5.1); TOTAL BILIRUBIN 0.7 mg/dL (<0.1-1.0)
--- NOTE | 2019-09-14 15:31 | EKG ---
[facility] [place] [address] ELECTROCARDIOGRAM REPORT Name: JOHNNY ZUÑIGA Room #: 506- DIS IN M.R.#: [id number] Admission: 08/31/19 Attend Phys: Diego Sal MD Discharge: 09/14/19 Date of : 33 Report #: [id number] THIS REPORT FOR: cc: Rony Jasso MD, Neal A. MD Couchonnal, Luis F. 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: aCrol Ann VIEIRA : 1935 Requested By: Rojelio Barbour Order Number: [id number] MD: Sami Pompa Measurements Intervals [place] Rate: 75 P: 62 GA: 225 QRS: -69 QRSD: 181 T: 91 QT: 492 QTc: 550 Interpretive Statements Atrial-sensed ventricular-paced rhythm No further analysis attempted due to paced rhythm Compared to ECG 08/25/2019 17:44:21 No significant changes Electronically Signed On 09-14-2019 15:30:33 MOTION PICTURE SET UP WORKER by Sami Pompa [email or web address] <ELECTRONICALLY SIGNED> By: Sami Pompa MD 09/14/19 1530 1440 1440 Sami Pompa MD /EPI
--- NOTE | 2019-09-15 15:07 | H ---
[facility] [place] [address] HISTORY AND PHYSICAL Name: JOHNNY ZUÑIGA Room #: 506-1 [facility] IN M.R.#: [id number] Admission: 08/31/19 Attend Phys: Diego Sal MD Discharge: 09/14/19 Date of : 33 Report #: [id number] THIS REPORT FOR: //name// CC: Diego Linfab Jasso DATE OF SERVICE: 08/31/2019 HISTORY AND PHYSICAL/POSTADMISSION PHYSICIAN EVALUATION HISTORY OF PRESENT ILLNESS: The patient is an 84-year-old white male who was admitted initially to [facility] on 08/25/2019 with acute left-sided weakness. Initial CT of the head was negative. Repeat CT of the head showed subacute right basal ganglia infarct. He also has a history of chronic bilateral lacunar and a right occipital infarct. He is noted to have dense left upper extremity plegia with significant left lower extremity dense paresis. This is a major decrease in functional abilities for this patient. He has been neurologically cleared and now he has been admitted for acute in-hospital inpatient rehabilitation. Cardiac echo did show moderate mitral regurgitation, moderate diastolic dysfunction. He does have atrial fibrillation, rate controlled. He also has chronic kidney disease. PAST MEDICAL HISTORY: There is a history of urinary tract infection and there is note of some dementia, nevertheless living in the community. MEDICATIONS: Please see the full medication listing. ALLERGIES: No known drug allergies. SOCIAL HISTORY: Lives at home with his , was independent with ADLs and uses no assistive device. He went to the gym 3 times a week and used a bike. Lives in a split level home. does IADLs and is very supportive. REVIEW OF SYSTEMS: No current complaints of chest pain, shortness of breath, or abdominal discomfort. No dizziness or headache. No cough. No skin issues. He denies any problems swallowing. There is some note of incontinence. Some general fatigue. PHYSICAL EXAMINATION: GENERAL: An 84-year-old male, in no obvious distress. VITAL SIGNS: Last recorded temperature 97.4, pulse 70, respirations 20, blood pressure 125/55. NEUROLOGIC: He is alert, tends to defer answers to his , somewhat limited verbalizations, will follow basic 1 step commands. Facies appeared symmetric except for a depressed left nasolabial fold. CHEST: Sounded reasonably clear to auscultation. [address] [address] HISTORY AND PHYSICAL Name: JOHNNY ZUÑIGA Room #: 506-1 [facility] IN M.R.#: [id number] Admission: 08/31/19 Attend Phys: Diego Sal MD Discharge: 09/14/19 Date of : 33 Report #: [id number] CARDIOVASCULAR: Heart sounds, regular. ABDOMEN: Bowel sounds positive, nontender. GENITOURINARY AND RECTAL: Deferred. EXTREMITIES: He has functional range of motion and strength of the right upper and right lower extremity without obvious focal weakness. Left upper extremity reveals dense flaccid plegia. He may have a hint of some early subluxation. Left lower extremity, he can wiggle his toes, some, but there is a definite delay, grade 1-2. He may have a slight ability to extend the knee, grade 2+. No focal calf swelling. Sensory examination appeared reasonably intact to simultaneous stimulation bilateral upper and lower extremities. Functionally, he is max assist with sit to stand. ASSESSMENT: An 84-year-old white male with the following problem list: 1. Right basal ganglia cerebrovascular accident. 2. 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 3. History of atrial fibrillation. 4. Chronic kidney disease. 5. History of congestive heart failure with moderate mitral regurgitation. 6. Documentation of some premorbid dementia, nevertheless living in the community. 7. Dysphagia. He is on nectar thickened liquids. PLAN: The patient has been admitted for acute in-hospital inpatient rehabilitation. From a postadmission physician evaluation perspective, there are no relevant changes since the preadmission screening. Please see the above review of prior and current medical and functional conditions and comorbidities. Please see the patient's previous and current functional status. As far as risk of complications, the patient has the above noted medical comorbidities and decreased functional status. Initial plan of care involves the interdisciplinary acute inpatient rehabilitation program. Measurable functional goals would be for the patient to improve as far as functional status with basic bed mobility, transfers, functional mobility, and ADLs as well as swallowing issues, so that he can hopefully return back to the home setting. Prognosis is reasonably good with estimated length of stay probably fairly long as he is at a lower functional level. Would estimate at least 2-1/2 to 3 weeks. Potential barriers would include his multiple medical comorbidities and decreased functional status. <ELECTRONICALLY SIGNED> By: Diego Sal MD 09/15/19 1507 1614 1632 Diego Sal MD /[facility]
--- NOTE | 2019-09-15 15:07 | PLAN ---
[facility] [place] [address] REHAB UNIT PLAN OF CARE Name: JOHNNY ZUÑIGA Room #: 506-1 DIS IN M.R.#: [id number] Admission: 08/31/19 Attend Phys: Diego Sal MD Discharge: 09/14/19 Date of : 33 Report #: [id number] THIS REPORT FOR: //name// CC: Diego Jasso DATE OF SERVICE: 09/02/2019 PROGRESS NOTE AND OVERALL PLAN OF CARE SUBJECTIVE: The patient is seen back today in followup. He is in no distress. Last recorded temperature 36.6, pulse 64, respirations 16, blood pressure 108/48. We have been working with him in therapies with basic transfers, max assist. He is ambulated max assistive to 6 feet in the parallel bars. In occupational therapy, he is max assist, upper and lower body dressing. In speech therapy, he is on a mechanical soft diet with nectar thickened liquids. ASSESSMENT: 1. Acute right basal ganglia cerebrovascular accident. 2. Left hemiparesis. 3. Dysphagia. 4. History of atrial fibrillation. 5. Chronic kidney disease. 6. History of congestive heart failure with moderate mitral regurgitation. 7. Documentation of some premorbid dementia. PLAN: The overall plan of care is based on the preadmission screen, post-admission physician evaluation and information garnered from therapy assessments. 1. Estimated length of stay is probably at least 2-1/2 weeks to 3 weeks. 2. Medical prognosis is reasonably good. 3. Anticipated interventions includes the interdisciplinary acute inpatient rehabilitation program. 4. Anticipated functional outcomes would be for the patient to become modified independent with transfers, mobility and ADLs as well as improvement with his swallowing and cognition, so that he can return back to the home setting. 5. Discharge destination would be back to the home setting with his . Consideration for assisted living options is underway. 6. Expected therapy by discipline includes PT, OT and speech 1 hour per day each five days a week throughout the duration of the acute inpatient rehabilitation stay. <ELECTRONICALLY SIGNED> By: Diego Sal MD 09/15/19 1507 0904 1519 Diego Sal MD /[facility]
== END 2019-09-14 14:17 | disposition short-term general hospital (02) | DRG 56 ==
PROVIDERS: Internal Medicine; Nurse Practitioner; Psychiatry & Neurology Neurology; Psychiatry & Neurology Psychiatry; ADMIT Physical Medicine & Rehabilitation
DX: I69.354 Hemiplegia and hemiparesis following cerebral infarction affecting left non-dominant side (principal); I63.9 Cerebral infarction, unspecified; G93.41 Metabolic encephalopathy; I13.0 Hypertensive heart and chronic kidney disease with heart failure and stage 1 through stage 4 chronic kidney disease, or unspecified chronic kidney disease; I48.20 Chronic atrial fibrillation, unspecified; I50.42 Chronic combined systolic (congestive) and diastolic (congestive) heart failure; E44.0 Moderate protein-calorie malnutrition; F01.51 Vascular dementia, unspecified severity, with behavioral disturbance; R13.10 Dysphagia, unspecified; I34.0 Nonrheumatic mitral (valve) insufficiency; E78.5 Hyperlipidemia, unspecified; N18.3 Chronic kidney disease, stage 3 (moderate); R53.81 Other malaise; R26.9 Unspecified abnormalities of gait and mobility; Z66 Do not resuscitate; Z68.22 Body mass index [BMI] 22.0-22.9, adult; Z87.891 Personal history of nicotine dependence; G30.9 Alzheimer's disease, unspecified; F02.80 Dementia in other diseases classified elsewhere, unspecified severity, without behavioral disturbance, psychotic disturbance, mood disturbance, and anxiety; F32.9 Major depressive disorder, single episode, unspecified; I25.10 Atherosclerotic heart disease of native coronary artery without angina pectoris; K59.00 Constipation, unspecified; I48.0 Paroxysmal atrial fibrillation; R41.0 Disorientation, unspecified
CPT/HCPCS: 10112

== ENCOUNTER 2019-09-14 13:53 | Inpatient (IN) | payer OTHER ==
[2019-09-14] VITALS (31 sets, daily range): BP systolic 118–159; BP diastolic 63–109
[~2019-09-14] VITALS: Ht 190.5 cm; Wt 82.2 kg
--- NOTE | 2019-09-14 13:20 | NUR ---
neuro here and pt going down to icu for TPA (stroke). will cont following as needed for dc needs. here at bedside as well.
--- NOTE | 2019-09-14 14:50 | NUR ---
SOFTWARE TOOLS ENGINEER CONTACED BY ANTOLIN WEINER AT 13:41. RAPID RESPONSE HAD BEEN CALLED AT 12:17 HOWEVER PER TOOTH CLERK IT WAS THOUGHT PATIENT WOULD NOT BE A TPA CANIDATE SECONDARY TO PREVIOUS STROKE ON THE 08/25/19. PT WAS TAKEN TO CT STAT AND NEUROLOGY WAS CONTACTED STAT HOWEVER PHARMACY AND SOFTWARE TOOLS ENGINEER WERE NOT NOTIFIED BECAUSE IT WAS NOT A STROKE PAGE. THIS RN ARRIVES TO REHAB UNIT ASSESSES PATIENT NIHSS-11. 18G PLACED IN LAC, NANCE PLACED BY NAVIN BLACKMON. BLOOD GLUCOSE 101. PT TAKEN TO ICU ROOM 242 VIA RNX2 AT 1400. PHARMACY ARRIVES SHORTLY THEREAFTER AND TPA INITIATED PER DR CHAWLA'S ORDERS WHILE DR CHAWLA WAS AT BEDSIDE. I WILL CONTINUE TO FOLLOW THIS PATIENT THROUGHOUT COURSE OF CARE.
--- NOTE | 2019-09-14 16:26 | NUR ---
pt down from [facility] acute rehab. ? stroke, neuro following. cm visited with jeremy, cm assisted her to get to [facility]. pt and live in house few steps to enter. 5 steps then 4 steps with hand rail in home. if needed to stay on main floor then only have 4 steps to get to the bathroom. min assist with adls at home prior to hospital."/ jeremy. will cont following as needed for dc needs.
--- NOTE | 2019-09-14 20:15 | NUR ---
1400 PT ADMIT FROM REHAB FOR STROKE. TPA GIVEN AT BEDSIDE PER DR CHAWLA ORDERS. DIRECT ADMIT COMPLETED. [place]. 1500 PT NIH DOWN, CHECK CHARTING 1600 DR CHAWLA BACK TO RE PLACE ORDERS THAT WERE PUT IN ON REHAB BROUGHT PACE MAKER ID CARD, COPY PLACED ON CHART AND ALSO FAXED TO MRI.
[2019-09-14 23:08] LABS: URINE BLOOD 3+ (Negative); URINE CLARITY CLOUDY; URINE COLOR BROWN; URINE GLUCOSE-RANDOM* NEGATIVE (Negative); URINE KETONES 1+ (Negative); URINE LEUKOCYTES 2+ (Negative); URINE NITRITE POSITIVE (Negative); URINE PROTEIN (DIPSTICK) 2+ (Negative); URINE SPECIFIC GRAVITY 1.025 (1.005-1.035)
--- NOTE | 2019-09-14 23:14 | NUR ---
ASSUMED PT CARE AROUND 1900. PT HAS BEEN SLEEPING BUT IS EASILY ARROUSABLE AND ABLE TO ANSWER SOME ORIENTATION QUESTIONS. HE NOW UNDERSTANDS HE IS AT THE HOSPITAL BUT DOES NOT KNOW THE MONTH OR YEAR. HE ALSO STATES HIS AGE IS 80. DENIES ANY PAIN. NIH AND NEURO CHECKS COMPLETED CHARTED. PT HAS LEFT FACIAL DROOP AND SEEMS TO HAVE DECREASED LEFT SIDE PERIPHERAL VISION NOTED BY HIS LEFT EYE NOT REACTING TO VISUAL STIMULI. PERRLA. LEFT ARM UNABLE TO RESIST GRAVITY BUT PT IS ABLE TO TRY TO MOVE IT VERY SLIGHTLY. WEAK CASHIER RECEPTIONIST STRENGTH WITH LEFT HAND. PT IS ABLE TO OCCASSIONALLY RESIST GRAVITY WITH LEFT LEG, BUT OTHER TIMES IS TOO WEAK TO LIFT IT EVEN SLIGHTLY OFF THE BED. BP STABLE. WILL CONTINUE TO MONITOR DURING THE NIGHT.
[2019-09-14 23:15] LABS: ICTOTEST (BILI CONFIRMATORY) Negative (Negative); URINE BILIRUBIN NEGATIVE (Negative)
[2019-09-14 23:16] LABS: YEAST Present (None Seen)
[2019-09-14 23:17] LABS: BACTERIA 1-9 Few /HPF (None Seen); CRYSTALS None Seen /LPF (None Seen); SQUAMOUS 0-3 Few /LPF (0-3); URINE RBC >20 Many /HPF (0-2)
[2019-09-14 23:18] LABS: CASTS None Seen /LPF (None Seen); URINE WBC 6-15 Few /HPF (0-5)
[2019-09-15] VITALS (38 sets, daily range): BP systolic 110–149; BP diastolic 49–73
--- NOTE | 2019-09-15 04:52 | NUR ---
PT HAS BEEN SLEEPING MOST OF THE NIGHT BUT IS ARROUSABLE AND FOLLOWS COMMANDS FOR NIH AND NEURO CHECKS. VSS. AFEBRILE. REPOSITIONED TO PREVENT SKIN BREAKDOWN. LEFT ARM ELEVATED ON PILLOW. NO SIGNIFICANT CHANGE IN NEURO STATUS DURING THE NIGHT. NIH AND NEURO CHECKS HAVE REMAINED CONSISTENT THROUGHOUT THE SHIFT. FALL PRECAUTIONS IN PLACE. WILL CONTINUE TO MONITOR FURTHER.
[2019-09-15 06:14] LABS: CHOLESTEROL 102 mg/dL (<200); HDL CHOLESTEROL 42 mg/dL (>40); LDL CHOLESTEROL 47 mg/dL (<100); TC:HDL 2.4 Ratio (Not establshd); TRIGLYCERIDE 68 mg/dL (<150); VLDL 14 mg/dL (<40)
[2019-09-15 06:20] LABS: SERUM ASSESSMENT Clear
--- NOTE | 2019-09-15 09:30 | NUR ---
Patient to CT per bed from 829 to 904 with portable monitor and this nurse,
[2019-09-15 11:30] LABS: CALCIUM 8.9 mg/dL (8.5-10.1); CREATININE 1.2 mg/dL (0.7-1.3); POTASSIUM 3.8 mmol/L (3.5-5.1)
[2019-09-15 11:34] LABS: PHOSPHORUS 3.2 mg/dL (2.5-4.9)
--- NOTE | 2019-09-15 15:00 | NUR ---
TO CT SCAN PER BED WITH CARDIAC PORTABLE MONITOR AND THIS NURSE AND BACK TO THE ROOM FOR CTA OF THE NECK. WAITED IN ROOM
--- NOTE | 2019-09-15 18:30 | NUR ---
PATIENT PROGRESSING EVIDENT BY STROKE SCALE 10 TO 11 TODAY, SPEECH IS SLURRED. DR CHAWLA INFORMED OF CTA OF NECK RESULTS AND INABILITY TO TO HAVE MRI OF HEAD DUE TO PACEMAKER COMPATABILITY TODAY, IN TO SEE PATIENT THIS EVENING. MONITOR VENTRICURALLY PACED RHYTHM WITH INTERMITTENT AV PACING NOTED. AT BEDSIDE AND UPDATED TO POC AND REASSURANCE GIVEN. TOLERATING DIET WITHOUT COUGHING.
[2019-09-16] VITALS (37 sets, daily range): BP systolic 112–142; BP diastolic 50–70
--- NOTE | 2019-09-16 08:10 | NUR ---
cm notified that per dr savage pt ok to go back to acute 5n rehab when insurance auth has been received as long as neuro doesnt as other [place]. , son and pt agree. therapy will need to see pt as well to send for auth. per bedside nurse possible going for mri today. will cont following as needed for dc needs. bedside nurse to call report to [phone] on day of dc to acute rehab.
--- NOTE | 2019-09-16 14:38 | NUR ---
PER CUSTOMER ACCOUNT TECHNICIAN: DR. PRAJAPATI IS REPORTING PATIENT MEDICALLY STABLE AND READY FOR ACUTE REHAB AUTHORIZATION REQUEST TO BE MADE TO [facility]. AUTHORIZATION PROCESS INITIATED THIS DATE BY LUMP RECEIVER. AWAITING AUTHORIZATION DECISION FROM INSURANCE COMPANY.
--- NOTE | 2019-09-16 17:03 | NUR ---
PATIENT TO MRI AT 1330 ACCOMPANIED BY THIS NURSE ON UTILITY WORKER ROLLER SHOP, PACEMAKER INTERIGATE AND OFF FOR MRI. PACER TURNED ON BY REP AND PATIENT RETURNED TO ROOM AT 1415 AND PLACED BACK ON MONITOR. FAMILY AT BEDSIDE AWAITING RESULTS OF MRI. LEFT HAND FELT HAT POUNCING OPERATOR HAND IS STRONGER THIS EVENING. NEURO STATUS OTHERWISE STABLE.
[2019-09-17] VITALS (10 sets, daily range): BP systolic 110–130; BP diastolic 41–63
--- NOTE | 2019-09-17 04:52 | NUR ---
PT alert AND ORIENTED X2. LEFT SIDED WEAKNESS, S/P STROKE. PT UNABLE TO HOLD LEFT SIDE AGAINST GRAVITY, ARM DRIFT , AND SOME SLURRED SPEECH STILL EVIDENT. OTHER VSS . FAMILY VISITED LAST NIGHT, UPDATED ON PT CONDITION. THIS MORNING, PT TRANSFERRED TO 3W. REPORT CALLED TO NAVIN MERRITT ON 3W. PT LEFT IN A STABLE CONDITION AND PROGRESSING TOWARDS GOAL.
[2019-09-17] MEDS ORDERED: ELIQUIS2.5 MG PO (15:29)
[2019-09-17] MEDS ORDERED: CLOPIDOGREL75 MG PO (15:30)
--- NOTE | 2019-09-17 15:56 | NUR ---
DISCHARGE NOTE: ZEN reviewed chart and spoke with nursing and attending physician. Pt was transferred to 3W early this morning. Pt is medically stable for discharge to 5N. ZEN discussed with 5N rehabilitation specialist, who states they did receive insurance authorization and they can accept pt today. ZEN updated attending physician, who will put in discharge orders/summary. ZEN met with pt and family at bedside to provide update. All are aware and agreeable with discharge plan. ZEN updated [facility] liaison. Pt to d/c to 5N later today. Rehab CM to follow and assist as needed with discharge planning.
== END 2019-09-17 16:38 | DRG 62 ==
LOC: 2N 13:53 → ICU 14:13 → 3W 09-17 04:22
PROVIDERS: Psychiatry & Neurology Neurology; ADMIT Family Medicine
DX: I63.9 Cerebral infarction, unspecified (principal); N17.9 Acute kidney failure, unspecified; R29.810 Facial weakness; I50.9 Heart failure, unspecified; I65.09 Occlusion and stenosis of unspecified vertebral artery; E78.5 Hyperlipidemia, unspecified; I11.0 Hypertensive heart disease with heart failure; I48.0 Paroxysmal atrial fibrillation; F03.90 Unspecified dementia, unspecified severity, without behavioral disturbance, psychotic disturbance, mood disturbance, and anxiety; Z87.891 Personal history of nicotine dependence; Z95.0 Presence of cardiac pacemaker; Z79.82 Long term (current) use of aspirin; Z79.899 Other long term (current) drug therapy
CPT/HCPCS: 10078; 10204

== ENCOUNTER 2019-09-17 14:17 | Inpatient (IN) | payer OTHER ==
[~2019-09-17] VITALS: Ht 190.5 cm; Wt 76.0 kg
[2019-09-17] MEDS ORDERED: ELIQUIS2.5 MG PO (15:29)
[2019-09-17] MEDS ORDERED: CLOPIDOGREL75 MG PO (15:30)
[2019-09-17 20:00] VITALS: BP 134/50
--- NOTE | 2019-09-17 20:16 | NUR ---
PT ARRIVED ON UNIT ABOUT 1720, PT A&O TO PERSON, ANSWERS YES/NO TO QUESTIONS. VSS O2 ON 2L VIA NC. PT DENIED ANY PAIN OR DISCOMFORT. NO SKIN ISSUES NOTED, LUNG SOUNDS CLEAR. PULSES IN EXTREMITIES NORMAL +2. IV TO RAC AND LFA BOTH STATLOCK. INCONTINENT OF BM, ALSO HAS NANCE. BM TODAY. PT APPEARED DROWSY BUT OPENS EYES WHEN NAME CALLED. BED IN LOWEST POSITION, CALL LIGHT WITHIN REACH, WILL CONTINUE TO MONITOR PER POC.
--- NOTE | 2019-09-18 02:21 | NUR ---
PT ASSESSMENT DONE AND VSS. MEDS GIVEN AND WELL TOLERATED. FALL PRECAUTIONS IN PLACE. SLEEPING WELL. HOURLY ROUNDING. CALL LIGHT IN REACH. WILL CONTINUE TO MONITOR.
[2019-09-18 06:50] LABS: HEMATOCRIT 37.4 % (42.0-52.0); HEMOGLOBIN 12.6 gm/dL (14.0-18.0); MCH 32.5 pg (26.0-34.0); MCHC 33.7 g/dL (28.0-37.0); MCV 96.5 fL (80.0-100.0); RBC 3.87 mil/uL (4.50-6.00); RDW 14.1 % (10.5-14.5); WBC 11.1 thou/uL (4.0-11.0)
[2019-09-18 07:04] LABS: CALCIUM 8.7 mg/dL (8.5-10.1); POTASSIUM 3.5 mmol/L (3.5-5.1)
[2019-09-18 08:41] VITALS: BP 116/64
--- NOTE | 2019-09-18 16:00 | NUR ---
ASSUME PT CARE AT 0700. PT ALERT AND ORIENTED X2. FORGETFUL AND ABLE TO FOLLOW COMMAND. PT KNOWS SUPERVISOR CARPENTERS AND RECEPTIVE TO CARE. PARTICIPATES WELL WITH THERAPY. OFFFERED SUPPORTIVE CARE. REASSESSMENT PER CHART. NANCE PATENT AND INTACT WITH SAMMIE COLOR. ENCOURAGED PT TO DRINK MORE. PT IS ON NECTAR THICKENER. MEDS CRUSHED AND GIVEN WITH APPLE SAUCE. TOLERATED WELL. PT DENIED ANY PAIN OR DISCOMFORT. NO SKIN ISSUES NOTED, LUNG SOUNDS CLEAR. BS PRESENT DENIES CONSTIPATION. PULSES IN EXTREMITIES NORMAL +2. IV TO RAC AND LFA BOTH STATLOCK. FALL PRECAUTION IN PLACE. UP WITH MAX ASSIST PIVOT TRANSFER. AT BEDSIDE. PT WAS PLEASANT AND TALKATIVE WITH THIS PATIENT. RESTING IN BED AT THIS MOMENT. GAVE REPORT TO NAVIN GRESHAM TO CONTINUE TO MONITOR AT 1530
--- NOTE | 2019-09-18 17:06 | NUR ---
INITIAL ASSESSMENT: Reviewed chart and spoke with nursing. Pt was admitted to 5N yesterday due to CVA. Pt lives at home with his . 5 steps to enter the home. 4 steps from living room to bathroom. No hx of services. Pt's PCP is Dr. Jasso. Pt was not using DME prior to admission. Team meeting to be held to discuss pt's progress and anticipated discharge. CM following to assist as needed with discharge planning.
--- NOTE | 2019-09-18 19:37 | NUR ---
PATIENTS DAUGHTER ERVIN WANTED TO MAKE SURE WE HAD HER PHONE NUMBER. [phone]. JESS HOLDEN
[2019-09-18 20:00] VITALS: BP 111/60
--- NOTE | 2019-09-19 03:51 | NUR ---
TURNED TO SIDE, MOISTURE BARRIER TO REDDENED PERIRECTAL AREA TAKING MEDS WHOLE WITH YOGURT WITH A FEW SIPS OF NECTAR THICK FLUIDS. NANCE PATENT TO ALTHEA.
[2019-09-19 07:45] VITALS: BP 106/49
--- NOTE | 2019-09-19 15:50 | NUR ---
ASSUME PT CARE AT 0700. REPORTS SLEPT GOOD. PT ALERT AND ORIENTED X2. FORGETFUL AND ABLE TO FOLLOW COMMAND. OFFFERED SUPPORTIVE CARE. REASSESSMENT PER CHART. NANCE PATENT AND INTACT WITH SAMMIE COLOR. ENCOURAGED PT TO DRINK MORE. PT IS ON NECTAR THICKENER. MEDS CAN GIVEN WITH APPLE SAUCE PER ST TOLERATED WELL. PT DENIED ANY PAIN OR DISCOMFORT. NO SKIN ISSUES NOTED, LUNG SOUNDS CLEAR. BS PRESENT DENIES CONSTIPATION. BS HYPOACTIVE. LAST BM WAS 09/17. WILL CALL DR. MITCHELL FOR STANDARD PRN TYLENOL AND LAXATIVE. REMOVED IV TO RAC AND LEAVE LFA BOTH STATLOCK. PATENT AND INTACT. FALL PRECAUTION IN PLACE. UP WITH MAX ASSIST PIVOT TRANSFER.PARTICIPATED WELL WITH THERAPY TODAY. RESTING IN BED AT THIS MOMENT. CHECK FREQUENTLY FOR NEEDS AND SAFETY.
[2019-09-19 20:48] VITALS: BP 109/54
--- NOTE | 2019-09-20 04:36 | NUR ---
assumed care at approx 1900 evening . pt lying in bed with head of bed elevated at change of shift. fink to dd with clear, yellow urine to bag. pt took hs meds with applesauce tolerating well. pt appears to be sleeping soundly with hourly rounding checks. bed alarm on and call light in reach. will continue to monitor.
[2019-09-20 08:00] VITALS: BP 102/41
--- NOTE | 2019-09-20 17:19 | NUR ---
ASSUMED CARE AT 0700, A&0 X 1, NO ACUTE DISTRESS DURING SHIFT. VSS STABLE, O2 ON RA. MAX ASSIST X 2 WITH TRANSFERS. PT DENIES PAIN OR DISCOMFORT, IV TO LFA. APPETITE BETTER TODAY, SAT UP FOR DINNER IN DINING ROOM. BM X 2 TODAY, ON DAVE STOOL SOFTNER/LAXATIVE. [facility] ORDERED PER DR CHAWLA TO KEEP PT BP >120. FAMILY AT BEDSODE, SITTING IN CHAIR, CALL LIGHT WITHIN REACH, WILL CONTINUE TO MONITOR PER POC.
[2019-09-20 19:39] VITALS: BP 134/58
--- NOTE | 2019-09-21 02:17 | NUR ---
pt pulled on catheter and was bleeding near penis. pt reminded several times not to pull on catheter however pt continued to reach for catheter and try and pull on it despite advising not to. when asked if catheter was bothering him he said yes. order recd to dc and did without difficulty. ua to be sent to lab.
--- NOTE | 2019-09-21 02:22 | NUR ---
pt with large incontinent bowel movement and pt had put his hands in stool and also pulled on catheter and therefore small/moderate amount blood to penis. order recd to dc fink catheter and did so without difficulty. large amount time cleaning up pt of stool from hands, arms, etc. complete bed change and linen change. pts 02 sat checked and 94% on room air. pt given clean linens, warm blanket and now back to sleep. washcloth pad placed over penis area and advised pt to not touch penis area. pt verbalized understanding. bed alarm on and call light in reach. will continue to monitor.
[2019-09-21 02:56] LABS: URINE BILIRUBIN NEGATIVE (Negative); URINE BLOOD 3+ (Negative); URINE CLARITY CLOUDY; URINE COLOR YELLOW; URINE GLUCOSE-RANDOM* NEGATIVE (Negative); URINE KETONES TRACE (Negative); URINE PROTEIN (DIPSTICK) 1+ (Negative); URINE SPECIFIC GRAVITY 1.025 (1.005-1.035)
[2019-09-21 02:57] LABS: URINE LEUKOCYTES-REFLEX 1+ (Negative); URINE NITRITE-REFLEX POSITIVE (Negative)
[2019-09-21 03:08] LABS: BACTERIA-REFLEX >30 Many /HPF (None Seen); HYALINE CASTS 0-3 Few /LPF (None Seen); MUCUS 0-3 Light strn/LPF (None Seen); SQUAMOUS None Seen /LPF (0-3); URINE RBC >20 Many /HPF (0-2)
[2019-09-21 03:09] LABS: CALCIUM OXALATE 0-3 Few /LPF (None Seen)
[2019-09-21 03:53] VITALS: BP 144/69
--- NOTE | 2019-09-21 04:13 | NUR ---
pt somewhat restless trying to climb out of bed. pt with bloody gown and moderate amt clots and blood from penis. pt stated he wanted to get out of bed to go the the bathroom. assisted pt with urinal and voided bloody trickled amt urine. cleaned pt up again, repostioned in bed, applied pad to penis, given warm blanket and now back to sleep. vss however rapid resp. 144/69, pulse 75, 02 sat 98% on room air, resp 24. notified FAST FOOD SHIFT LEAD Archana and order recd for CBC for am run. bed alarm on, will continue to monitor.
[2019-09-21 07:04] VITALS: BP 118/58
[2019-09-21 07:32] LABS: HEMATOCRIT 35.7 % (42.0-52.0); HEMOGLOBIN 12.3 gm/dL (14.0-18.0); MCH 32.9 pg (26.0-34.0); MCHC 34.3 g/dL (28.0-37.0); MCV 95.9 fL (80.0-100.0); RBC 3.72 mil/uL (4.50-6.00); RDW 14.5 % (10.5-14.5); WBC 12.7 thou/uL (4.0-11.0)
[2019-09-21 19:16] VITALS: BP 124/55
--- NOTE | 2019-09-21 19:43 | NUR ---
ASSUMED CARE AT 0700, PT WAS ALERT BUT CONFUSED AND WANTED TO GET OUT OF BED, MARKET EDITOR NURSE WAS AT BEDSIDE. NOTED THAT PT HAD BLOODY URINE AND SMALL BLOOD CLOTS A RESULT OF TRAUMA FROM PULLING ON NANCE DURING THE NIGHT. PT WAS ASSISTED TO BR, LARGE BM WITH BLOODY URINE NOTED. THROUGHOUT SHIFT, PT FELT URGE TO URINATE AND INCONTINENT. MOVED TO 513 FOR CLOSER MONITORING. CBC RESULTS WERE WNL. PT TOLERATED THERAPY, APPETITE STILL POOR, ATE BITS OF MEALS BUT DRANK FLUIDS AND ENSURE PUTTING. TOLERATED MEDS IN APPLESAUCE. DENIED PAIN OR DISCOMFORT. IGNACIO HOSE WAS APPLIED THIS AM TO INCREASE BP. PT RESTING IN BED, CALL LIGHT WITHIN REACH, WILL CONTIUE TO MONITOR PER POC.
--- NOTE | 2019-09-22 02:41 | NUR ---
TURNED TO SIDE, AND PATIENT REPOSITIONING SELF. INCONTINENT OF PINK-TINGED URINE. RESTING WELL TONIGHT FREQUENTLY OBSERVED NEAR NURSE STATION.
[2019-09-22 09:00] VITALS: BP 119/58
[2019-09-22 10:15] VITALS: BP 122/58
--- NOTE | 2019-09-22 11:21 | NUR ---
ASSUMED CARE AT 0700. PATIENT IS ALERT AND ORIENTED TO PERSON. PATIENT HAS LEFT HEMIPARESIS. PATIENT LUNGS ARE CLEAR AND DEMINISHED. ABD IS SOFT WITH BSX4. ST HERE FOR BREAKFAST. PATIENT REFUSED TO GET UP . EVAL DONE AT BEDSIDE. TOOK MEDS IN APPLESAUCE. SLEEPY TODAY. PATIENT UA C&S SHOWED E.COLI. PATIENT STARTED ON PO ABT. FALL AND SAFETY PROTOCOLS IN PLACE. DENIES ANY PAIN. PATIENT IS TURNED Q 2 HOURS. CONTINUES TO REFUSE OT. P.T. WILL TRY IN A FEW MIN TO GET HIM TO PARTICIPATE. WILL CONTINUE TO MONITER.
--- NOTE | 2019-09-22 14:20 | NUR ---
team meeting, recommendation: encourage to work with therapy. po abx for uti. re team. vital stim with speech. anticipated dc 10/06. will need 24hr cg and supervision. check on family support in the home.
[2019-09-22 19:33] VITALS: BP 136/72
--- NOTE | 2019-09-23 05:19 | NUR ---
TURNED PLUS TURNING SELF TO LEFT SIDE OVERNIGHT. INCONTINENT OF SAMMIE URINE, BLADDER SCAN CHECKS LESS THAN 50 CC. PATIENT INFORMED OF NEED TO RESTART ANTIBIOTICS YESTERDAY, GIVEN WHOLE WITH APPLESAUCE AT 0230
--- NOTE | 2019-09-23 07:46 | NUR ---
ASSUMED CARE AT 0700. PATIENT IS ALERT TO PERSON ONLY. PATIENT HAS LEFT HEMIPARESIS. PATIENT IS VERY SLEEPY TODAY. LUNGS ARE CLEAR AND DEMINISHED. ABD IS SOFT WITH BSX4. FALL AND SAFETY PROTOCOLS IN PLACE. DENIES ANY PAIN AT THIS TIME. CONTINUES TO NOT PARTICIPATE IN THERAPIES WELL. PATIENT CONTINUES ON ABT FOR UTI. WILL CONTINUE TO MONITER.
[2019-09-23 08:30] VITALS: BP 103/64
[2019-09-23 19:53] VITALS: BP 89/49
--- NOTE | 2019-09-24 00:39 | NUR ---
PT ALERT AND ORIENTED X 1. LEFT SIDE FLACCID. PT TAKES MEDS IN APPLESAUCE WITHOUT DIFFICULTY. PT DENIES PAIN OR DISCOMFORT. BED ALARM ON FOR SAFETY. PT APPEARS TO BE SLEEPING ON HOURLY ROUNDS.
[2019-09-24 08:00] VITALS: BP 145/80
--- NOTE | 2019-09-24 20:28 | NUR ---
ASUMED CARE AT 0700, PT A&O TO PERSON. NO ACUTE DISTRESS DURING SHIFT. VSS O2 ON RA. MAX ASSIST X 2. PT DENIES PAIN OR DISCOMFORT. NO IV ACESS, TOLERATES MEDS WHOLE IN APPLESAUCE. TOLERATED THERAPY. INCONTINENT OF B&B LAST BM 09/23/19. PT APPEITE STILL POOR, ENCOURAGE PT TO DRINK SUPPLEMENTS AND EAT MEALS. RESTING IN BED, CALL LIGHT WITHIN REACH, WILL CONTINUE TO MONITOR PER POC.
[2019-09-24 20:48] VITALS: BP 139/71
--- NOTE | 2019-09-25 00:49 | NUR ---
PT ALERT AND ORIENTED X 1. LEFT SIDE FLACCID. INCONT OF URINE. TAKES MEDS IN APPLESAUCE WITHOUT DIFFICULTY. PT DENIES PAIN OR DISCOMFORT. BED ALARM ON FOR SAFETY. PT APPEARS TO BE SLEEPING ON HOURLY ROUNDS.
[2019-09-25 07:53] VITALS: BP 114/69
--- NOTE | 2019-09-25 10:12 | NUR ---
cm visited with jeremy and son at bedside after assistant corporate secretary visiting with them, she provided education on dcp, dme, hh and snf. cm visited with jeremy, she stated she not ever met rn field case manager. did not recall that we had spoke of phone call tue evening. cm visited with pt and 1st he was up here for rehab prior to new stroke and then down in icu as well. cm re-education on dme, covered and not covered, home health and that will talk after next team and if needs cm before showed her cm number and also staff can locate cm for questions. cm gave pd, access pd pamphlet, life alert pamphlet, and list places to rent or buy dme equip if needed for dc. will cont following as needed for dc needs.
--- NOTE | 2019-09-25 10:47 | NUR ---
Carton Lettering Machine Operator to see patient yesterdat 09/24/19. pt sitting in wheelchair drowsy but following commands. at bedside. very pleasant however confused and voiced concerns on plan of care for her . she states she is unsure what physicians have seen him and not sure what to do when she takes him home. I tried to explain to the best of my abilities however not having experience in rehab I spoke with Neda RN of case management. She agreed to see patient and explain plan of care. Today, 09/25/19 when visiting with Mrs Sparks and son, Neda delivered more written material and education to . Mrs Sparks also reported a physician did visit with her this morning. I plan to monitor this patient and family the entire stay and make sure all are informed of plan even though that is always subject to change.
[2019-09-25 20:20] VITALS: BP 138/58
--- NOTE | 2019-09-26 02:49 | NUR ---
PT IS ALERT AND ORIENTED X1.PT IS WITH LEFT SIDED WEAKNESS.PT IS INCONTINENT.P TAKES MEDICATION WHOLE WITH APPLESAUCE WITH NO DIFFICULTIES..PT PPEARED T BE SLEEPING DURING HOURLY ROUNDS.FALL PRECAUTIONS IN PLACE.WILL CONTINUE TO MONITOR PER POC
[2019-09-26 08:30] VITALS: BP 122/50
--- NOTE | 2019-09-26 17:36 | NUR ---
PT ALERT AND ORIENTED TIMES TWO. VERY SOFT SPOKEN. VSS. PT DENIES PAIN/SOA. PT TOLERATES MEDS AND MEALS. PT WORKED WELL WITH PT/OT TODAY. PT UP IN THE CHAIR FOR SOME PART OF THE DAY. PT AT BEDSIDE. PT SLOWLY PROGRESSING DAVIDS POC GOALS.
[2019-09-26 19:44] VITALS: BP 138/61
--- NOTE | 2019-09-27 06:11 | NUR ---
TOLERATING MEDS WHOLE IN PUREE, APPLESAUCE BY HIS CHOICE. INCONTINENT OF URINE, TURNED AND CHANGED EVERY 2 HOURS, TOLERATED WELL. SACRUM PINK
[2019-09-27 08:00] VITALS: BP 138/74
--- NOTE | 2019-09-27 17:15 | NUR ---
ASSUMED CARE AT 0700, PT A&0 TO PERSON, NO ACUTE DISTRESS DURING SHIFT. FAMILY VISITED. VSS O2 ON RA. PT DENIES ANY PAIN OR DISCOMFORT, MAX ASSIST X 2 USING WHEELCHAIR. PT REFUSED BREAKFAST ONLY ATE ENSURE PUDDING, AND ABOUT 20% OF LUNCH. TOLERATES MEDS WHOLE IN APPLESAUCE. INCONTINENT OF B&B, LAST BM 09/23/19 ON DAVE COLACE, REFUSES MIRALAX. RESTING IN BED, CALL LIGHT WITHIN REACH, WILL CONTINUE TO MONITOR PER POC.
[2019-09-27 20:20] VITALS: BP 131/59
--- NOTE | 2019-09-28 05:05 | NUR ---
TURNED EVERY 2 HOURS WITH CHECKS FOR DRYNESS. HAS BEEN DRY ONLY ONE OF THE 6 TIMES CHECKED. TURNED TO SIDE AND MOVES SOME BY HIMSELF. ENCOURAGED NECTAR THICK LIQUIDS AND WAS ABLE TO TAKE APPROX 300 CC
[2019-09-28 08:33] VITALS: BP 117/57
--- NOTE | 2019-09-28 10:10 | NUR ---
PT CAME TO CM OFFICE WITH PAMPHLET FROM [facility], " I THINK HE WILL NEED THIS AND HAD FRIENDS THERE WHO SAY IT IS GOOD, NOT SURE IF HE WILL BE READY TO DC WHEN YOU ALL SET THE DATE, WILL THERE BE A MEETING THIS WEEK"/DEE DEE. RE-EDUCATION THAT WILL HAVE ANOTHER TEAM MEETING TOMORROW AND WILL SENT INFORMATION TO TEAM ABOUT WANTING SKILLED REHAB AT DC AND ASKED HER TO LOOK INTO ANOTHER SKILLED FACILITY IN CASE [facility] DOES NOT HAVE ANY BED OPEN. " OH WHILE THEY DID NOT SAY THEY DID NOT HAVE ANY BED OPEN"/DEE DEE. WILL CONT FOLLOWING NEEDED FOR DC NEEDS.
--- NOTE | 2019-09-28 16:13 | NUR ---
ASSUMED ACRE AT 0700, PT A&O TO PERSON, NO ACUTE DISTRESS NOTED, SPOUSE VISITED. VSS O2 ON RA. PT DENIES PAIN OR DISCOMFORT. MAX ASSIST X 2 WITH TRANSFERS, TOLERATES MEDS WHOLE IN APPLESAUCE. INCONTINENT OF B&B, LAST BM 09/23/19 ON DAVE COLACE. PT CONTINUES TO HAVE POOR INTAKE, EATS LESS THAN 20% OF MEAL. PT RESTING IN BED, CALL LIGHT WITHIN REACH, WILL CONTINUE TO MONITOR PERR POC.
[2019-09-28 20:31] VITALS: BP 113/61
--- NOTE | 2019-09-29 02:51 | NUR ---
PT ALERT AND ORIENTED X 1. INCONT OF URINE. PT TAKES MEDS IN APPLESAUCE WITHOUT DIFFICULTY. LEFT SIDE FLACCID. PT DENIES PAIN OR DISCOMFORT. BED ALARM ON FOR SAFETY. PT APPEARS TO BE SLEEPING ON HOURLY ROUNDS.
[2019-09-29 06:02] LABS: HEMATOCRIT 34.3 % (42.0-52.0); HEMOGLOBIN 11.8 gm/dL (14.0-18.0); MCH 33.2 pg (26.0-34.0); MCHC 34.4 g/dL (28.0-37.0); MCV 96.5 fL (80.0-100.0); PLATELET COUNT 274 thou/uL (150-400); RBC 3.55 mil/uL (4.50-6.00); RDW 14.2 % (10.5-14.5); WBC 7.8 thou/uL (4.0-11.0)
[2019-09-29 06:05] LABS: CALCIUM 8.9 mg/dL (8.5-10.1); CREATININE 1.2 mg/dL (0.7-1.3); POTASSIUM 3.9 mmol/L (3.5-5.1)
[2019-09-29 08:43] LABS: ABSOLUTE NEUTROPHILS 4.4 thou/uL (1.4-8.2); PLATELET ESTIMATE NORMAL
[2019-09-29 12:00] VITALS: BP 104/52
--- NOTE | 2019-09-29 12:59 | NUR ---
team meeting, recommendation: on [facility] soft nectar thick diet. vital stim and will need video swallow before dc. dc 18th to 24hr cg in home if family, and dcp option. will cont following as needed for dc.
--- NOTE | 2019-09-29 15:51 | NUR ---
call center coordinator to see patient and x2 attempts today however unsuccessful. I did however observe Mr. Sparks in therapy today. He did appear slightly more awake than previous visits however per nurses that did not last long. will continue to follow patient and family through this plan of care.
--- NOTE | 2019-09-29 16:17 | NUR ---
ASSUMED CARE AT 0700, PT A&O TO PERSON, FAMILY AT BEDSIDE. VSS O2 ON RA. PT APPEARED SLEEPY BUT RESPONSIVE, APPETITE CONTINUES TO BE POOR, ON CALORIE COUNT. TOLERATES MEDS WHOLE WITH APPLE SAUCE, SAT IN DINING ROOM FOR BREAKFAST. INCONTINENT OF B&B, LAST BM 09/23/19, ON DAVE COLACE, REFUSES MIRALAX. PROVIDER AWARE. PARTICIPATED IN SOME THERAPY. RESTING IN BED, CALL LIGHT WITHIN REACH, WILL CONTINUE TO MONITOR PER POC.
--- NOTE | 2019-09-29 17:02 | NUR ---
FAXED REFERRAL TO [facility] SPOKE WITH MEGHNA IN ADM SHE RECEIVED REFERRAL AND THEY ARE AT CAPACITY WITH PT'S INSURANCE. DP TO FOLLOW.
[2019-09-29 19:30] VITALS: BP 126/62
--- NOTE | 2019-09-30 00:39 | NUR ---
PT ASSESSMENT DONE AND VSS. MEDS GIVEN AND WELL TOLERATED. ALSO GAVE MOM FOR CONSTIPATION X [address]CA[address]IONS IN PL[address]. HOURLY ROUNDING DONE. CALL LIGHT IN REACH. WILL CONTINUE TO MONITOR.
[2019-09-30 08:30] VITALS: BP 129/69
--- NOTE | 2019-09-30 10:27 | NUR ---
kristyn spoke with byron at [facility] and they can not accept rt his insurance. kristyn called and left message with jeremy to let her know referral was sent to the [facility].
--- NOTE | 2019-09-30 18:42 | NUR ---
ASSUME PT CARE AT 0700. REPORTS SLEPT GOOD. PT ALERT AND ORIENTED X2. FORGETFUL AND ABLE TO FOLLOW COMMAND. OFFFERED SUPPORTIVE CARE. REASSESSMENT PER CHART. HAS LEFT SIDE WEAKNESS AND FLACID. PT IS ON NECTAR THICKENER. MEDS CAN GIVEN WITH APPLE SAUCE PER ST TOLERATED WELL. PT HAS BEEN UP TO DINNING ROOM FOR MEALS. ASSISTED WITH FEEDING. PT STILL HAS POOR APPETITE. PT DENIED ANY PAIN OR DISCOMFORT. NO SKIN ISSUES NOTED, LUNG SOUNDS CLEAR. LAST BM WAS 7 DAYS AGO. ON DAILY COLACE. GAVE PRN MOM AND MIRALAX. HAD LARGE SOFT BM THIS EVENING. STILL HAS POOR APPETITE. FALL PRECAUTION IN PLACE. UP WITH MAX ASSIST PIVOT TRANSFER.PARTICIPATED WELL WITH THERAPY TODAY. RESTING IN BED AT THIS MOMENT. CHECK FREQUENTLY FOR NEEDS AND SAFETY. WILL GIVE REPORT TO NIGHT NURSE TO CONTINUE TO MONITOR.
[2019-09-30 19:15] VITALS: BP 123/51
--- NOTE | 2019-10-01 01:19 | NUR ---
PT ALERT AND ORIENTED X 1, FLAT AFFECT. LEFT SIDE FLACCID. INCONT OF URINE. PT TAKES MEDS IN APPLESAUCE WITHOUT DIFFICULTY. TURNED Q2H. PT DENIES PAIN OR DISCOMFORT. BED ALARM ON FOR SAFETY. PT APPEARS TO BE SLEEPING ON HOURLY ROUNDS.
[2019-10-01 08:45] VITALS: BP 117/65
--- NOTE | 2019-10-01 14:15 | NUR ---
kristyn spoke with at bedside about place to send referral to for skilled rehab " yes i went by [facility] and he said they did not get the referral martha"/iglesia. re-education that referral was sent, byron liaison and facility re-reviewed and with [facility] cant take with out special agreement and at [facility] for building right now so no to accepting. re-education on [facility] snf list "[facility] a no, [facility] is so much closer."/jeremy. education that if she could start to look because dc on and will need auth from [facility] to go skilled anyway and that could take few days. " well you just going to kick him out then and i want to talk with [facility]"/jeremy. kristyn spoke with liaison who going to take referral back to administration to re-review to see if he meets. education with jeremy that sometimes if facility doesnt feel they can meet a patient needs then they say no any way, will let iglesia and jeremy know the outcome or re-review. noted becoming agitated during visit. active listen and support during visit. will cont following as needed for dc needs.
--- NOTE | 2019-10-01 18:31 | NUR ---
ASSUME PT CARE AT 0700. PT ALERT AND ORIENTED X2. FORGETFUL AND ABLE TO FOLLOW COMMANDS. OFFFERED SUPPORTIVE CARE. REASSESSMENT PER CHART. HAS LEFT SIDE WEAKNESS AND FLACID. PT IS ON NECTAR THICKENER. MEDS CAN GIVEN WITH APPLE SAUCE PER ST TOLERATED WELL. PT HAS BEEN UP TO DINNING ROOM FOR MEALS. ASSISTED WITH FEEDING. PT STILL HAS POOR APPETITE. PT DENIED ANY PAIN OR DISCOMFORT. INCONT B&B. HAD LARGE SOFT BM TODAY WITH PHYSICAL THERAPIST. STILL HAS POOR APPETITE. ASSISTED WITH FEEDING. SPOUSE WAS HERE AND CONCERNED WITH DISCHARGE. CM WAS NOTIFIED AND HELPED FINDING SKILLS FACILITY FOR PT. FALL PRECAUTION IN PLACE. UP WITH MAX ASSIST PIVOT TRANSFER.PARTICIPATED WELL WITH THERAPY TODAY. REFUSED TO EAT DINNER. ASSISTED 100% FOR DINNER. ATE 50% DINNER AND DRANK 360CC NECTAR THICK LIQUID. CHECK FREQUENTLY FOR NEEDS AND SAFETY. WILL GIVE REPORT TO NIGHT NURSE TO CONTINUE TO MONITOR.
[2019-10-01 19:05] VITALS: BP 126/67
--- NOTE | 2019-10-02 03:51 | NUR ---
CARE ASSUMED AT 1900.PATIENT WAS IN BED ASLEEP. PATIENT INCONTINENT PERICARE AND BARRIER CREAM APPLIED NEEDED. PATIENT TURNED Q 2 HOURS. PATIENT NEEDS MAXIMUM ASSISTANCE WITH TRANSFER, TOILETING, ADL AND BED MOBILITY. PATIENT HAS NO S/S OF PAIN OR DISCOMFORT. PATIENT IN BED ASLEEP AT THIS TIME BREATHING REGULAR AND UNLABOURED.
[2019-10-02 07:54] VITALS: BP 127/53
--- NOTE | 2019-10-02 10:40 | NUR ---
pt jeremy stopped cm and ask for another snf list " left mine at home"/. cm reaccessed to see if she visited any skilled facility that we talked about yesterday? " no went to [facility] but sign on door said not to enter unless doctor"/william. cm provided her another snf list for [facility] again discussed [facility], [facility], [facility], [facility], [facility]. " going to go look at lunch"/jeremy. will cont following as needed for dc needs.
--- NOTE | 2019-10-02 13:35 | H ---
[facility] [place] [address] HISTORY AND PHYSICAL Name: JOHNNY ZUÑIGA Room #: 513-P ADM IN M.R.#: [id number] Admission: 09/17/19 Attend Phys: Diego Sal MD Discharge: Date of : 33 Report #: [id number] THIS REPORT FOR: cc: Rony Jasso MD,Rony Sal,Diego Clay MD ~ CC: Diego Jasso DATE OF SERVICE: 09/17/2019 HISTORY AND PHYSICAL AND POST-ADMISSION PHYSICIAN EVALUATION HISTORY OF PRESENT ILLNESS: An 84-year-old male previously known to us who was on the acute inpatient rehab lujan for a subacute right basal ganglia infarct along with a prior history of chronic bilateral lacunar and right occipital infarct. He had dense left upper extremity paresis and significant left lower extremity paresis. He was working in therapies when he had a worsening of his neurologic condition. He was seen by Dr. Barbour with increased left-sided weakness and increased somnolence. He had a CT of the head showing multiple infarcts since 03/[address] MRI [address] a stat CT scan that was obtained on 09/14/2019 was without any additional findings. He was in the window for TPA and underwent the TPA down in the ICU with transfer off of rehabilitation. CT angiogram revealed dense calcification, severe plaque, and tiny patent proximal left vertebral lumen. He also has paroxysmal atrial fibrillation with amiodarone, Plavix and Eliquis was started. He has a past history of pacemaker with interrogation revealing normal function. The patient was felt to be ready and has now been transferred back for acute in-hospital inpatient rehabilitation. He is to continue the Eliquis and the Plavix daily as per Neurology. PAST MEDICAL HISTORY: He has a history of urinary tract infection. There was note of some dementia. MEDICATIONS: Please see the full medication listing. ALLERGIES: No known drug allergies. SOCIAL HISTORY: He had been previously living at home with his , was independent with ADLs. He used no assistive devices. He went to the gym 3 times a week. Lives in a split level home. REVIEW OF SYSTEMS: No current complaints of chest pain, shortness of breath or abdominal discomfort. PHYSICAL EXAMINATION: GENERAL: An 84-year-old male, in no obvious distress. VITAL SIGNS: Temperature 98.7, pulse 64, respirations 20, and blood pressure [facility] [address] [place] [address] HISTORY AND PHYSICAL Name: JOHNNY ZUÑIGA Room #: 513-P [facility] IN ..#: [id number] Admission: 09/17/19 Attend Phys: Diego Sal MD Discharge: Date of : 33 Report #: [id number] 134/50. He is sleepy, but easily arouses. He can follow basic one step commands, is pleasant. HEENT: He has a definite left facial droop. EOMs reveal some decreased attention to the left side with left visual field testing. CHEST: Sounded clear to auscultation. CARDIOVASCULAR: Regular rate and rhythm. ABDOMEN: Bowel sounds positive, nontender. GENITOURINARY AND RECTAL: Deferred. EXTREMITIES: He has functional range of motion of the right upper and right lower extremity with strength probably a grade 4-/5, left upper extremity revealed a grade 2- left shoulder flexion. He has got a tiny ability a grade 2-3 to just move his distal fingers of the left hand. No movement of the actual wrist and no actual sports agent was obtained. Left lower extremity strength is a little better at probably a grade 3 to 3+/5. It was somewhat difficult to assess sensation. Tone was reasonably intact, slightly decreased on the left. ASSESSMENT: 1. Recurrent strokes. 2. Left-sided upper extremity dense hemiparesis and lower extremity paresis. 3. Cognitive communication concerns. 4. Dysphagia, mechanical soft nectar thickened liquids. 5. Paroxysmal atrial fibrillation. 6. Prior cardiac pacemaker. 7. History of some premorbid dementia. PLAN: The patient has been admitted for acute in-hospital inpatient rehabilitation. From a postadmission physician evaluation perspective, there are no relevant changes since the preadmission screening. Please see the above review of prior and current medical and functional conditions and comorbidities. Please see the patient's previous and current functional status. As far as risk of complications, the patient has multiple medical comorbidities as noted above. Initial plan of care involves the interdisciplinary acute inpatient rehabilitation program. Measurable functional goals would be for the patient to hopefully improve with transfers, mobility, ADLs, swallowing and cognition, so he can return back to the home setting. Prognosis is reasonably good with estimated length of stay probably fairly long at least 2-1/2 to 3 weeks. Potential barriers would include the multiple medical comorbidities and decreased functional status. We will have the taxation consultant physicians continue to follow. <ELECTRONICALLY SIGNED> By: Diego Sal MD 10/02/19 [id number] [id number] Diego Sal MD /nt
--- NOTE | 2019-10-02 13:35 | PLAN ---
[facility] [place] [address] REHAB UNIT PLAN OF CARE Name: JOHNNY ZUÑIGA Room #: 513-P ADM IN M.R.#: [id number] Admission: 09/17/19 Attend Phys: Diego Sal MD Discharge: Date of : 33 Report #: [id number] THIS REPORT FOR: //name// CC: Diego Jasso DATE OF SERVICE: 09/20/2019 PROGRESS NOTE AND OVERALL PLAN OF CARE SUBJECTIVE: The patient was seen yesterday in followup 09/19/2019, note is being today 09/20/2019. He was seen yesterday morning, no distress. Temperature 98.4, pulse 82, respirations 18, blood pressure 111/64. He has the left-sided weakness. He has been working in therapies with sit to stand transfers at max assist level. Bed wheelchair has been max assist too. In occupational therapy, lower body dressing has been max assist. In speech therapy, he has moderate comprehensive deficits, [id number] expressive deficits. He is on a mechanical soft nectar thickened liquid diet. ASSESSMENT: 1. Recurrent strokes. 2. Left-sided upper extremity hemiparesis and lower extremity paresis. 3. Cognition and communication concerns. 4. Dysphagia, on mechanical soft nectar thickened liquids. 5. Paroxysmal atrial fibrillation. 6. Prior cardiac pacemaker. 7. History of some prior dementia. PLAN: The overall plan of care is based on the preadmission screen, post-admission physician evaluation and information garnered from therapy assessments. 1. Estimated length of stay is probably at least 2-1/2 to 3 weeks. 2. Medical prognosis is reasonably good. 3. Anticipated interventions includes the interdisciplinary acute inpatient rehabilitation program. 4. Anticipated functional outcomes would be for the patient to hopefully achieve at least a wheelchair level of independence initially and to improve swallowing and improve overall endurance and hopefully, we will get further return of his left-sided paresis. 5. Discharge destination will be home with . We will likely need additional care. 6. Expected therapy by discipline includes PT, OT and speech 1 hour per day [facility] [address] [place] [address] REHAB UNIT PLAN OF CARE Name: JOHNNY ZUÑIGA Room #: 513-P [facility] IN .R.#: [id number] Admission: 09/17/19 Attend Phys: Diego Sal MD Discharge: Date of : 33 Report #: [id number] each five days a week throughout the duration of the acute inpatient rehabilitation stay. <ELECTRONICALLY SIGNED> By: Diego Sal MD 10/02/19 [id number] Diego Sal MD /MURIEL
--- NOTE | 2019-10-02 13:59 | NUR ---
Nutrition: REC appetite stimulant such as mirtazapine. Pt with poor appetite and minimum 10# weight loss over admit despite interventions.
--- NOTE | 2019-10-02 15:24 | NUR ---
ASSUMED CARES AT 0700. PT ORIENTED TO SELF ONLY, LETHARGIC AND DROWSY. DENIES PAIN. VITALS REMAIN STABLE. REFUSED HIS LUNCH, HAD A FEW BITES OF ENSURE MIXED WITH PROTEIN POWDER. REDNESS NOTED ON LEFT UPPER ARM AFTER TAPE WAS REMOVED, MONITORING. UP WITH 1-2 MOD ASSIST, GB AND WALKER. REMAINS INCONTINENT OF BLADDER. FREQ. VISUAL CHECKS. CALL LIGHT WITHIN REACH. FALL PRECAUTIONS IN PLACE.
[2019-10-02 20:15] VITALS: BP 94/51
[2019-10-02 22:30] VITALS: BP 122/57
--- NOTE | 2019-10-03 03:23 | NUR ---
PT ASSESSMENT COMPLETED AND VSS. MEDS GIVEN ORDERED AND WELL TOLERATED. FALL PRECUATIONS IN PLACE. PT VERY THIRSTY AND HAD 2 NECTOR THICK LIQUIDS WITH ASST. ASST WITH REPOSITION FOR COMFORT. INC OF LARGE AMOUNTS OF URINE. PT DID INTERACT BUT WAS VERY FLAT. SLEEPING WELL. WILL CONTINUE TO MONITOR FREQUENTLY.
[2019-10-03 08:00] VITALS: BP 122/54
--- NOTE | 2019-10-03 16:20 | NUR ---
PT RESTING IN BED. WAS UP FOR BREAKFAST AND LUNCH IN DINING ROOM . ASSIST XS 2 TO W/C. HAS LEFT SIDE WEAKNESS. SPOUSE AND SON HERE TO VISIT.
--- NOTE | 2019-10-03 17:46 | NUR ---
PT TAKEN TO DINING ROOM FOR DINNER. PT W/O PAIN OR RESP DISTRESS. `
[2019-10-03 19:42] VITALS: BP 113/55
--- NOTE | 2019-10-04 00:44 | NUR ---
PT ASSESSMENT COMPLETED AND VSS. MEDS GIVEN ORDERED AND WELL TOLERATED. PT HAD 2 NECTOR THINK LIQUIDS WITH ENCOURAGEMENT. TURNED FREQUENTLY. INC OF LARGE AMOUNTS OF URINE. SLEEPING WELL. FALL PRECAUTIONS IN PLACE. WILL CONTINUE TO MONITOR FREQUENTLY.
[2019-10-04 07:04] LABS: URINE BILIRUBIN NEGATIVE (Negative); URINE BLOOD TRACE (Negative); URINE CLARITY CLEAR; URINE COLOR YELLOW; URINE GLUCOSE-RANDOM* NEGATIVE (Negative); URINE KETONES NEGATIVE (Negative); URINE LEUKOCYTES-REFLEX 3+ (Negative); URINE NITRITE-REFLEX POSITIVE (Negative); URINE PROTEIN (DIPSTICK) TRACE (Negative); URINE SPECIFIC GRAVITY 1.015 (1.005-1.035); URINE UROBILINOGEN 0.2 E.U./dl (0.2-1.0)
[2019-10-04 07:31] LABS: CASTS None Seen /LPF (None Seen); SQUAMOUS 0-3 Few /LPF (0-3)
[2019-10-04 07:32] LABS: BACTERIA-REFLEX >30 Many /HPF (None Seen); CRYSTALS None Seen /LPF (None Seen); URINE RBC 0-2 Rare /HPF (0-2); URINE WBC-REFLEX 6-15 Few /HPF (0-5); WBC CLUMPS Occasional (None Seen)
[2019-10-04 07:55] VITALS: BP 75/36
[2019-10-04 08:07] VITALS: BP 99/51
--- NOTE | 2019-10-04 15:22 | HC ---
[facility] [place] [address] CONSULTATION Name: JOHNNY ZUÑIGA Room #: 513-P ADM IN M.R.#: [id number] Admission: 09/17/19 Attend Phys: Diego Sal MD Discharge: Date of : 33 Report #: [id number] THIS REPORT FOR: cc: Rony Jasso MD, Neal A. MD Deutch,Rony Maharaj. PhD ~ CC: Diego Jasso DATE OF SERVICE: 09/26/2019 AGE: 84. ATTENDING PHYSICIAN: Diego Sal MD AIR TRAFFIC CONTROLLER: Rony Escalante, PhD CLINICAL PRESENTATION: The patient initially presented to the rehabilitation unit with a subacute right basal ganglia infarction. His history included a chronic bilateral lacunar and right occipital infarction. He was on the rehab unit when he sustained a subsequent stroke. CT of the head revealed multiple infarcts since February 2019. A CT scan obtained on 09/14/2019 did not show additional findings; however, the patient was in the window for TPA and underwent TPA in the ICU following his transfer off the rehabilitation unit. The patient has a history of UTI and likely dementia. His assessment on admission to the rehab unit included recurrent strokes, left-sided upper extremity dense hemiparesis and lower extremity paraparesis, cognitive communication concerns, dysphagia, mechanical soft nectar thickened liquids, paroxysmal atrial fibrillation, prior cardiac pacemaker and a history of premorbid dementia. A complete description of his medical condition and history can be found in his medical records. Neuropsychological consultation was requested to provide assistance in the assessment of cognitive and emotional status and to provide recommendations and services. Prior to this most recent medical event, he was living at home with his . The patient had been diagnosed with vascular dementia about 3-4 years ago. He has 4 children, 3 of his children are from a previous marriage. This is his second marriage. 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 The patient is a high school graduate. His is very supportive. TECHNIQUES UTILIZED: Clinical interview, review of medical records, staff consultation and behavioral observation and mini mental status exam 2 standard version. [facility] [address] [place] [address] CONSULTATION Name: YOGESHJOHNNY Paco Room #: 513-P [facility] IN ..#: [id number] Admission: 09/17/19 Attend Phys: Diego Sal MD Discharge: Date of : 33 Report #: [id number] EXAMINATION FINDINGS: The patient was interviewed on 2 separate occasions. He had been difficult to arouse and quite sluggish and drowsy during previous interviews. He was more cooperative and alert during this current assessment. However, the patient was unable to accurately indicate the reason for his hospitalization. He does acknowledge symptoms of impaired memory and concentration, but does not report anxiety or depression. His performance on the MMSE 2 brief version was extremely low with a raw score of 4/16. He was 3/3 for initial registration, 1/5 for orientation to time and 0/[address]. He was 0/3 for immediate recall of 3 items after brief time delay and distraction. Performance on the MMSE 2 standard version was extremely low with a raw score of 10/30, which is less than 1%. He was 1/5 for serial sevens, 2/2 for naming, 1/1 for repetition, 3/3 for auditory comprehension. He could not read and follow single command. The patient was able to dictate a sentence. He was unable to copy a simple geometric design. Poor upper extremity dexterity in construction is also noted. The patient is presenting with severe deficits in cognition. Cuurently, he is not oriented to time or place. He does not present with an aphasia. There is no report of auditory or visual hallucinations. 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 RECOMMENDATIONS: The patient will require assistance in the management of medication, finances and nutrition. His appears very supportive and interested in providing care for him. However, educational information will be necessary to clarify the extent of help that he will need. Continued cognitive rehabilitation and stimulation through physical and occupational therapy may also improve his level of functioning. A treatment program for neurocognitive disorder that includes the use of medication to support cognition, e.g., Namenda, Aricept may be of benefiy. Thank you very much for allowing me to provide the consultation on this patient. <ELECTRONICALLY SIGNED> By: Rony Escalante, PhD 10/04/19 [id number] Rony Escalante, PhD /nt
[2019-10-04 20:11] VITALS: BP 110/38
--- NOTE | 2019-10-04 20:34 | NUR ---
ASSUMED CARE OF PT AT 0700. PT IS A&OX1-2, BLOOD PRESSURE LOW, NO SYMPTOMS OF HYPOTENSION, BLOOD PRESSURE MONITORED. IN ROOM IN AM, TALKED WITH DR. SUN, CONFUSED ABOUT WHY PT WOULD BE ON HOSPICE CARE. PT UP FOR ALL MEALS. FALL PRECAUTIONS IN PLACE AND NURSING WILL CONTINUE TO MONITOR.
--- NOTE | 2019-10-05 02:04 | NUR ---
ASSUMED PT CARE AROUND 1930. AXOX2. VSS. NO S/S ACUTE DISTRESS NOTED OR REPORTED AT THIS TIME. WILL CONT TO MONITOR FOR ANY CHANGES IN CONDITION.
[2019-10-05 08:00] VITALS: BP 106/56
--- NOTE | 2019-10-05 09:45 | NUR ---
kristyn visited with jeremy and heladio rt snf location for dc. " well you see with this virus i think iglesia will think we abandon him because no rehab place will allow visitor and that is not going to be option"/jeremy. kristyn re education on senior blue book for private home duty that was provided, and hh list choices talked about hh facility that have hh, private duty and hospice with in the same company ie [employer] and [email or web address]. " i don't know where the book or list is i will need another one"/jeremy. heladio cont to agree with everything jeremy say rt dcp. will cont following as needed for dc need.
--- NOTE | 2019-10-05 15:00 | NUR ---
REPORT RECIEVED AT NOON, AND PT UP IN DINING ROOM EATING WITH FAMILY PROVIDING MUCH ENCOURAGEMENT. PT IS SLEEPY TODAY AND AT TIMES DOESN'T WANT TO PARTICIPATE IN THERAPIES, BUT HIS STATED THAT HE DID WORK WITH ALL THERAPIES TODAY. NOTED PT HAS A VERY FLAT AFFECT. IS WORKING ON DC PLAN AND NM ASSISTED SOME TO DEFINE PRIVATE DUTY VS HH NURSING AND ENCOURAGED HER TO GET ADDITIONAL HELP AT HOME IF SHE IS PLANNING THIS THE DC PLAN. STATED THAT SHE CANNOT BEAR THE THOUGHT OF NOT BEING ABLE TO SEE PT, AND THAT THE SKILLED FACILITIES ARE NOT ALLOWING VISITATION DUE TO COVID 19. NOTED TO HER THAT SHE WILL NEED EXTENSIVE ASSIST IN THE HOME, AND HER SON ALSO ASSISTING HER WITH DC PLANNING FOR SATURDAY.
[2019-10-05 19:37] VITALS: BP 113/46
--- NOTE | 2019-10-06 00:05 | NUR ---
PT ALERT AND ORIENTED X 1. INCONT OF URINE. PT TAKES MEDS IN APPLESAUCE WITHOUT DIFFICULTY. PT DENIES PAIN OR DISCOMFORT. BED ALARM ON FOR SAFETY. PT APPEARS TO BE SLEEPING ON HOURLY ROUNDS.
[2019-10-06 06:51] LABS: ABSOLUTE NEUTROPHILS 7.5 thou/uL (1.4-8.2); BASOPHILS 0.6 % (0.0-2.0); EOSINOPHILS 2.5 % (0.0-3.0); HEMATOCRIT 34.5 % (42.0-52.0); HEMOGLOBIN 11.8 gm/dL (14.0-18.0); LYMPHOCYTES 13.1 % (24.0-44.0); MCHC 34.2 g/dL (28.0-37.0); MCV 96.6 fL (80.0-100.0); MONOCYTES 11.2 % (1.0-8.0); PLATELET COUNT 261 thou/uL (150-400); POLYS 72.6 % (36.0-66.0); RBC 3.57 mil/uL (4.50-6.00); RDW 14.7 % (10.5-14.5); WBC 10.3 thou/uL (4.0-11.0)
[2019-10-06 06:59] LABS: CALCIUM 8.7 mg/dL (8.5-10.1); CREATININE 1.2 mg/dL (0.7-1.3)
[2019-10-06 08:00] VITALS: BP 110/61
--- NOTE | 2019-10-06 09:39 | NUR ---
kristyn spoke with joanie with [facility] who called to say that hh had question that pt would be appropriate for hospice if pt and family was leaning that direction. joanie going to reach out to son heladio [phone] and then call . [facility] will meet family at their home. kristyn passed on that will need some private duty in home as well. will cont following as needed for dc needs.
--- NOTE | 2019-10-06 12:36 | NUR ---
ASSUMED CARE AT 0700. PATIENT IS ALERT AND ORIENTED X1 TO PERSON ONLY. PAIENT HAS LEFT SIDE HEMIPARESIS. PATIENT LUNGS ARE CLEAR AND DEMINISHSED. ABD IS SOFT WITH BSX4. PATIENT IS ON ABT FOR UTI. PATIENT IS INCONTINENT OF BOWEL AND BLADDER. HOSPICE CONSULT ORDERED BY REHAB ONLINE MEDIA BUYER. UP IN BED FOR BREAKFAST. FALL AND SAFETY PROTOCOLS IN PLACE. DENIES PAIN. CONTINUES TO WORK TOWARDS D/C GOALS INTERMITTANTLY. WILL CONTINUE TO [facility].
--- NOTE | 2019-10-06 13:02 | NUR ---
FAXED REFERRAL TO [facility] SPOKE WITH MARY IN INTAKE SHE RECEIVED REFERRAL AND CAN ACCEPT AT DC THE PVT DUTY LIASON WILL BE CONTACTING FAMILY. DP TO FOLLOW.
[2019-10-06 16:20] VITALS: BP 110/61
[2019-10-06 19:45] VITALS: BP 115/62
--- NOTE | 2019-10-07 02:21 | NUR ---
PT CARE ASSUMED WITH PT IN BED ABD APPEARED TO NE SLEEPING.PT IS ALERT AN DORIENTED TO SELF.PT HAS LT SIDE BODY WEAKNESS.PT TAKES MEDS WHOLE IN APPLE SAUCE AND SWALLOWED WITH NO DIFFICULTIES.PT HAS HOSPICE EVALUATION TODAY .WILL CONTINUE TO MONITOR
[2019-10-07 08:00] VITALS: BP 108/64
[2019-10-07] MEDS ORDERED: CLOPIDOGREL75 MG PO ×2 (08:05→09:31)
[2019-10-07] MEDS ORDERED: WELLBUTRIN XL150 MG PO ×2 (08:05→09:31)
[2019-10-07] MEDS ORDERED: COLACE100 MG PO ×2 (08:05→09:31)
[2019-10-07] MEDS ORDERED: ELIQUIS2.5 MG PO ×2 (08:05→09:31)
[2019-10-07] MEDS ORDERED: LIPITOR40 MG PO ×2 (08:05→09:31)
[2019-10-07 08:30] VITALS: BP 108/64
[2019-10-07] MEDS ORDERED: CEFUROXIME250 MG PO (09:31)
[2019-10-07 09:48] VITALS: BP 108/64
--- NOTE | 2019-10-07 10:37 | NUR ---
PT DISCHARGING TODAY TO HOME WITH [facility] FAXED DC ORDERS/SUMMARY RECEIVED CONFIRMATION AND SPOKE WITH [facility] IN INTAKE THAT TRANSPORT ARRANGED FOR 1230 TODAY. ARRANGED TRANSPORT WITH [facility] AND NOTIFIED (DEE DEE) OF DC AND TIME OF TRANSPORT. UNIT NOTIFIED AND CHART COPY PER US.
--- NOTE | 2019-10-07 10:57 | NUR ---
ASSUMED CARE AT 0700. PATIENT IS ALERT AND ORIENTED X1 TO PERSON ONLY. HAS LEFT HEMPARESIS. DYSPHAGI, ABLE TO TAKE SIPS OF THIN WATER NOW. VSS ON RA. REASSESSMENT PER CHART.PATIENT LUNGS ARE CLEAR AND DEMINISHSED. ABD IS SOFT WITH BSX4. LAST BM WAS 3 DAYS AGO. CONTINUE TO BE ON COLACE DAILY AND GIVE PRN MILK OF MAG THIS AM. PATIENT IS ON ABT FOR UTI CONTINUE TO BE ON CEFTIN. PATIENT IS INCONTINENT OF BOWEL AND BLADDER. HOSPICE CONSULT YESTERDAY. PT WILL GO HOME WITH HH/HOSPICE TODAY. DISCHARGE INSTRUCTION WENT OVER WITH BY LORRI LOOKBACK COORDINATOR. UP IN BED FOR BREAKFAST. ATE 20%. FALL AND SAFETY PROTOCOLS IN PLACE. DENIES PAIN. TRANSPORT VIA [facility] AT 12:30. PT IS RESTING IN BED AT THIS MOMENT.
== END 2019-10-07 12:55 | disposition hospice, home (50) | DRG 56 ==
PROVIDERS: Nurse Practitioner; Nurse Practitioner Family; ADMIT Physical Medicine & Rehabilitation
DX: I69.354 Hemiplegia and hemiparesis following cerebral infarction affecting left non-dominant side (principal); I63.9 Cerebral infarction, unspecified; I48.20 Chronic atrial fibrillation, unspecified; G93.49 Other encephalopathy; I50.42 Chronic combined systolic (congestive) and diastolic (congestive) heart failure; N39.0 Urinary tract infection, site not specified; R13.10 Dysphagia, unspecified; F03.90 Unspecified dementia, unspecified severity, without behavioral disturbance, psychotic disturbance, mood disturbance, and anxiety; I48.0 Paroxysmal atrial fibrillation; K59.00 Constipation, unspecified; Z66 Do not resuscitate; F01.50 Vascular dementia, unspecified severity, without behavioral disturbance, psychotic disturbance, mood disturbance, and anxiety; I34.0 Nonrheumatic mitral (valve) insufficiency; B96.20 Unspecified Escherichia coli [E. coli] as the cause of diseases classified elsewhere; E78.5 Hyperlipidemia, unspecified; F32.9 Major depressive disorder, single episode, unspecified; Z79.01 Long term (current) use of anticoagulants; Z95.0 Presence of cardiac pacemaker; Z87.440 Personal history of urinary (tract) infections; Z74.01 Bed confinement status; Z87.891 Personal history of nicotine dependence
CPT/HCPCS: 10112